=== PATIENT | female | born 1980 | race Caucasian/White ===

== ENCOUNTER 2016-11-11 05:26 | Emergency (ER) | payer OTHER ==
[~2016-11-11] VITALS: Ht 167.6 cm; Wt 81.7 kg
[~2016-11-11 05:26] MED LIST: ATIVAN0.5 MG PO; ATIVAN1 MG PO; DOXYCYCLINE 10100 MG PO; FLAGYL500 MG PO; HYDROCODONE-AP1 EAC6 PO; LEXAPRO20 MG PO; NOHOMEMEDICATIONS; NORCO 5-325 TA1 EACH PO; TORADOL 10 MG T10 MG PO; XANAX 0.5 MG0.5 M1 PO
[2016-11-11] MEDS ORDERED: CLONAZEPAM 1 MG1 M1 PO (05:32)
[2016-11-11] MEDS ORDERED: VENLAFAXIN75 MG/1 T2 PO (05:33)
[2016-11-11] MEDS ORDERED: OXYCODONE-ACET1 EACH PO (05:34)
[2016-11-11 06:10] LABS: URINE BILIRUBIN NEGATIVE (Negative); URINE BLOOD NEGATIVE (Negative); URINE COLOR YELLOW; URINE GLUCOSE-RANDOM* NEGATIVE (Negative); URINE KETONES NEGATIVE (Negative); URINE NITRITE NEGATIVE (Negative); URINE PROTEIN (DIPSTICK) NEGATIVE (Negative); URINE SPECIFIC GRAVITY >= 1.030 (1.003-1.035); URINE UROBILINOGEN 0.2 E.U./dl (0.2-1.0)
[2016-11-11 06:16] LABS: ABSOLUTE NEUTROPHILS 5.1 thou/uL (1.4-8.2); EOSINOPHILS 2.6 % (0.0-3.0); HEMATOCRIT 41.5 % (37.0-47.0); HEMOGLOBIN 14.2 gm/dL (12.0-15.0); LYMPHOCYTES 31.8 % (24.0-44.0); MCH 31.9 pg (26.0-34.0); MCHC 34.3 g/dL (28.0-37.0); MONOCYTES 6.7 % (1.0-8.0); PLATELET COUNT 230 thou/uL (150-400); POLYS 57.9 % (36.0-66.0); RBC 4.47 mil/uL (4.20-5.00); RDW 12.5 % (10.5-14.5); WBC 8.8 thou/uL (4.0-11.0)
[2016-11-11 06:26] LABS: ALBUMIN 3.5 g/dL (3.4-5.0); ALKALINE PHOSPHATASE 53 U/L (46-116); ANION GAP 11 mmol/L (7-16); BUN 12 mg/dL (7-18); CALCIUM 8.5 mg/dL (8.5-10.1); CHLORIDE 104 mmol/L (98-107); CO2 23 mmol/L (21-32); CREATININE 0.9 mg/dL (0.6-1.0); DIRECT BILIRUBIN < 0.1 mg/dL (<0.1-0.3); GLUCOSE 98 mg/dL (74-106); POTASSIUM 3.6 mmol/L (3.5-5.1); SGOT 18 U/L (15-37); SGPT 24 U/L (30-65); SODIUM 138 mmol/L (136-145); TOTAL BILIRUBIN 0.4 mg/dL (<0.1-1.0); TOTAL PROTEIN 6.7 g/dL (6.4-8.2)
[2016-11-11] MEDS ORDERED: ZOFRAN ODT4 MG PO (06:38)
[2016-11-11] MEDS ORDERED: PHENERGAN 25 MG25 M1 PO (06:38)
[2016-11-11 06:53] LABS: MANUAL DIFF NO
[2016-11-11 07:19] VITALS: BP 108/60
== END 2016-11-11 07:10 | disposition home or self-care (01) ==
LOC: ER 05:26
PROVIDERS: Emergency Medicine
DX: R10.30 Lower abdominal pain, unspecified (principal); M54.5 Low back pain; G89.29 Other chronic pain; Z98.890 Other specified postprocedural states; F32.9 Major depressive disorder, single episode, unspecified; F41.9 Anxiety disorder, unspecified; Z90.710 Acquired absence of both cervix and uterus; F17.210 Nicotine dependence, cigarettes, uncomplicated; F10.99 Alcohol use, unspecified with unspecified alcohol-induced disorder

== ENCOUNTER 2016-12-08 13:07 | Emergency (ER) | payer OTHER ==
[~2016-12-08] VITALS: Ht 167.6 cm; Wt 81.7 kg
[~2016-12-08 13:07] MED LIST changes: +CLONAZEPAM 1 MG1 M1 PO; +OXYCODONE-ACET1 EACH PO; +PHENERGAN 25 MG25 M1 PO; +VENLAFAXIN75 MG/1 T2 PO; +ZOFRAN ODT4 MG PO
[2016-12-08] MEDS ORDERED: HYDROXYZINE PAM50 MG PO (13:31)
[2016-12-08] MEDS ORDERED: ATIVAN0.5 MG PO (13:31)
[2016-12-08 13:33] LABS: URINE BILIRUBIN NEGATIVE (Negative); URINE BLOOD NEGATIVE (Negative); URINE COLOR YELLOW; URINE GLUCOSE-RANDOM* NEGATIVE (Negative); URINE KETONES NEGATIVE (Negative); URINE NITRITE NEGATIVE (Negative); URINE PROTEIN (DIPSTICK) TRACE (Negative); URINE SPECIFIC GRAVITY >= 1.030 (1.003-1.035); URINE UROBILINOGEN 0.2 E.U./dl (0.2-1.0)
[2016-12-08 14:24] LABS: ABSOLUTE NEUTROPHILS 4.4 thou/uL (1.4-8.2); BASOPHILS 0.9 % (0.0-2.0); EOSINOPHILS 1.4 % (0.0-3.0); HEMATOCRIT 42.2 % (37.0-47.0); HEMOGLOBIN 14.3 gm/dL (12.0-15.0); LYMPHOCYTES 24.8 % (24.0-44.0); MCH 31.2 pg (26.0-34.0); MCHC 33.9 g/dL (28.0-37.0); MONOCYTES 7.2 % (1.0-8.0); PLATELET COUNT 256 thou/uL (150-400); POLYS 65.7 % (36.0-66.0); RBC 4.58 mil/uL (4.20-5.00); WBC 6.8 thou/uL (4.0-11.0)
[2016-12-08 14:25] LABS: MANUAL DIFF NO
[2016-12-08 14:36] LABS: CALCIUM 8.7 mg/dL (8.5-10.1); CREATININE 0.8 mg/dL (0.6-1.0)
[2016-12-08 14:40] LABS: TOTAL BILIRUBIN 0.6 mg/dL (<0.1-1.0)
[2016-12-08] MEDS ORDERED: NAPROSYN500 MG PO (15:31)
[2016-12-08] MEDS ORDERED: NORFLEX100 MG PO (15:31)
[2016-12-08 15:45] VITALS: BP 110/66
== END 2016-12-08 15:45 | disposition home or self-care (01) ==
LOC: ER 13:07
PROVIDERS: Physician Assistant
DX: G89.29 Other chronic pain (principal); M54.5 Low back pain; N94.89 Other specified conditions associated with female genital organs and menstrual cycle; F41.9 Anxiety disorder, unspecified; F17.210 Nicotine dependence, cigarettes, uncomplicated; F32.9 Major depressive disorder, single episode, unspecified; Z90.710 Acquired absence of both cervix and uterus; Z90.89 Acquired absence of other organs

== ENCOUNTER 2016-12-22 20:18 | Inpatient (IN) | payer OTHER ==
[~2016-12-22] VITALS: Ht 167.6 cm; Wt 86.0 kg
--- NOTE | ~2016-12-22 | P ---
[facility] [place] [address] PROCEDURE REPORT Name: BING SR Room #: 441-P [facility] IN M.R.#: [id number] Admission: 12/24/16 Attend Phys: Jesusita Dalal Discharge: 12/26/16 Date of : 78 Report #: [id number] THIS REPORT FOR: //name// CC: Jonah Gustafson INPATIENT COLONOSCOPY REPORT BRIEF HISTORY: The patient is a 36-year-old woman with right lower quadrant abdominal pain and family history of inflammatory bowel disease. She has periods of diarrhea and constipation. PREOPERATIVE DIAGNOSES: Right lower quadrant abdominal pain, family history of inflammatory bowel disease and alternating diarrhea and constipation. POSTOPERATIVE DIAGNOSIS: Small internal hemorrhoids. MEDICATIONS: Deep sedation with propofol per anesthesia. SPECIMEN: None. ESTIMATED BLOOD LOSS: None. PROCEDURE: Colonoscopy to cecum and terminal ileum. FINDINGS: Prior to propofol sedation, procedure of colonoscopy discussed with the patient as well as potential risks and its complications. She indicates she understands and desires to proceed. DESCRIPTION OF PROCEDURE: With the patient in left lateral decubitus position, digital examination was completed which revealed no abnormalities. Subsequently, the [employer] video colonoscope was introduced in the rectum and advanced under direct vision to the cecum. As we advanced the scope deeper into the colon, we encountered pools of liquid and semi-liquid material. Unfortunately, we could not remove all this material due to retained particulate matter. In addition, as we advanced the scope, the prep became worse. Overall, the prep was fair in the distal colon and poor in the proximal colon. In particular, the cecum was not well seen because of retained liquid and amorphous material. However, we did reach the cecum. We identified the ileocecal valve and crossed the ileocecal valve. Indeed, there was also material in the distal terminal ileum. This could not be removed. However, as best we could see the mucosa, it was within normal limits. No bleeding lesions or ulcerations were seen. At that point, the scope was slowly withdrawn and careful circumferential views were obtained. As we withdrew the scope, again the prep was limited and poor in particular at the cecum. The prep was not adequate for colorectal [facility] [address] [place] [address] PROCEDURE REPORT Name: REMBERTOBINGJAY LOCKE Room #: 441-P DIS IN M.R.#: [id number] Admission: 12/24/16 Attend Phys: Jesusita Dalal Discharge: 12/26/16 Date of : 78 Report #: [id number] screening purposes. However, with regards to her severe abdominal pain, I did not see any obvious lesions such as ulcerations, evidence of inflammatory bowel disease such as Crohn's disease or mass lesions. However, with these retained liquidy stool areas, lesions could have been overlooked. As we withdrew the scope, the mucosa as well as could visualize was within normal limits. No mucosal abnormalities were seen. Scope was withdrawn in the rectum. Small hemorrhoids were seen. Scope was withdrawn. The patient tolerated the procedure well. DISPOSITION: The patient with abdominal pain, irregular bowel habits and family history of inflammatory bowel disease. No obvious lesions were seen on today's exam. She has had a fairly extensive workup to this point, and obvious etiology has not been identified. She has had multiple abdominopelvic surgeries, and adhesions may be the source of her pain. We will place her on dicyclomine mg every 6 hours as needed. <ELECTRONICALLY SIGNED> By: Mu Torres MD 12/31/16 0935 [id number] 0503 Mu Torres MD /nt
--- NOTE | ~2016-12-22 | P ---
[facility] [place] [address] PROCEDURE REPORT Name: REMBERTOBING CHUCKY Room #: 441-P [facility] IN M.R.#: [id number] Admission: 12/24/16 Attend Phys: Jesusita Dalal Discharge: 12/26/16 Date of : 78 Report #: [id number] THIS REPORT FOR: //name// CC: Jonah Gustafson BRIEF HISTORY: The patient is a 36-year-old woman with severe abdominal pain. PREOPERATIVE DIAGNOSIS: Abdominal pain. POSTOPERATIVE DIAGNOSIS: Moderate diffuse gastritis. MEDICATIONS: Deep sedation with propofol per anesthesia. SPECIMEN: Biopsies of gastritis. ESTIMATED BLOOD LOSS: 3 mL. PROCEDURE: EGD with biopsy. FINDINGS: Prior to propofol sedation, procedure of upper endoscopy discussed with the patient as well as potential risks and its complications. She indicates she understands and desires to proceed. DESCRIPTION OF PROCEDURE: With the patient in left lateral decubitus position, the [employer] video endoscope was inserted in the cervical esophagus under direct vision without difficulty. Examination of this organ through its entire length revealed normal esophageal mucosa down to the squamocolumnar junction. Squamocolumnar junction was inspected and noted to be within normal limits. No evidence of esophagitis, Garcia esophagus or hiatus hernia. Scope was advanced in the stomach, which was examined on end view as well as retroflexed views. There was a pattern of moderate gastritis in the antrum of the stomach. Multiple erosions were seen. Ulcers were not seen. Bleeding was not seen. There were no retained solids or liquids to suggest gastroparesis. Upon retroflexion, no mass lesions were seen. The pylorus, duodenal bulb, and postbulbar duodenal sweep were inspected and noted to be within normal limits. At that point, the scope was slowly withdrawn and careful circumferential views confirmed the above findings. The patient tolerated procedure well. DISPOSITION: I do not find a lesion to definitely explain her pain. I think a [facility] [address] [place] [address] PROCEDURE REPORT Name: BING SR Room #: 441-P [facility] IN .R.#: [id number] Admission: 12/24/16 Attend Phys: Jesusita Dalal Discharge: 12/26/16 Date of : 78 Report #: [id number] proton pump inhibitor would be reasonable at this point in time. We will proceed with colonoscopy for further evaluation. <ELECTRONICALLY SIGNED> By: Mu Torres MD 12/31/16 0935 1325 0356 Mu Torres MD /nt
--- NOTE | ~2016-12-22 | S ---
[facility] [place] [address] SURGICAL PATH RPT PROCEDURE Name: BING SRLE Room #: 441-P DIS IN M.R.#: [id number] Admission: 12/24/16 Date of : 78 Discharge: 12/26/16 Report #: [id number] Path Case #: [id number] PATHOLOGY REPORT COLLECTION DATE: 12/25/2016 RECEIVED DATE: 12/29/2016 SUBMITTING PHYS: Dr. Mu Torres OTHER PHYS: Dr. Jesusita Soto SPECIMEN(S) RECEIVED: A.Gastritis * * * * * * * * * * * * FINAL DIAGNOSIS: Gastric biopsy "gastritis": - Mild chronic reactive gastropathy. - There is no evidence of acute cryptitis, granulomas, adenomatous change or malignancy. - The immunoperoxidase stain for Helicobacter pylori is negative. PATHOLOGIST: Emery Leal M.D. REPORT ELECTRONICALLY SIGNED BY: Emery Leal M.D. DATE/TIME: 12/30/2016 12:43 * * * * * * * * * * * * GROSS PATHOLOGY: Received in formalin labeled "Bing Sr, gastritis," are four segments of blount soft tissue measuring 1.0 x 0.8 x 0.1 cm in aggregate dimensions and ranging from 0.3 to 0.5 cm in maximum dimension. The specimen is submitted entirely in cassette A1. (CAA; 12/29/2016) CLINICAL HISTORY: Pre-op diagnosis: Abdominal pain, diarrhea, vomiting Post-op diagnosis: Gastritis INITIAL CPT CODE(S): A; 65297, 87247 Professional services performed by [facility] at [facility] [address], [place] [address] Technical services performed by [facility] at [address] [place] [address]. [facility] [address] [place] [address] SURGICAL PATH RPT PROCEDURE Name: BING SR Room #: 441-P DIS IN Ken.R.#: [id number] Admission: 12/24/16 Date of : 78 Discharge: 12/26/16 Report #: [id number] Path Case #: [id number] [facility] [address] [place] [address] [address] PHONE: [phone] DIRECTOR: Shawn Jerome M.D. * * * END OF REPORT * * *
[~2016-12-22 20:18] MED LIST changes: +HYDROXYZINE PAM50 MG PO; +NAPROSYN500 MG PO; +NORFLEX100 MG PO
[2016-12-22 20:20] VITALS: BP 134/98
[2016-12-22] MEDS ORDERED: HYDROCODONE-AP1 EAC6 PO (20:28)
[2016-12-22 20:37] LABS: URINE BILIRUBIN NEGATIVE (Negative); URINE BLOOD NEGATIVE (Negative); URINE COLOR YELLOW; URINE GLUCOSE-RANDOM* NEGATIVE (Negative); URINE KETONES NEGATIVE (Negative); URINE NITRITE NEGATIVE (Negative); URINE PROTEIN (DIPSTICK) NEGATIVE (Negative); URINE SPECIFIC GRAVITY <= 1.005 (1.003-1.035); URINE UROBILINOGEN 0.2 E.U./dl (0.2-1.0)
[2016-12-22 21:05] LABS: ABSOLUTE NEUTROPHILS 7.3 thou/uL (1.4-8.2); BASOPHILS 0.7 % (0.0-2.0); EOSINOPHILS 2.3 % (0.0-3.0); HEMATOCRIT 39.2 % (37.0-47.0); HEMOGLOBIN 13.7 gm/dL (12.0-15.0); LYMPHOCYTES 24.3 % (24.0-44.0); MCH 31.9 pg (26.0-34.0); MCV 91.2 fL (80.0-100.0); MONOCYTES 7.6 % (1.0-8.0); PLATELET COUNT 263 thou/uL (150-400); POLYS 65.1 % (36.0-66.0); RDW 12.9 % (10.5-14.5); WBC 11.2 thou/uL (4.0-11.0)
[2016-12-22 21:06] LABS: MANUAL DIFF NO
[2016-12-22 21:09] LABS: CREATININE 0.9 mg/dL (0.6-1.0); POTASSIUM 4.2 mmol/L (3.5-5.1)
[2016-12-22 21:15] LABS: TOTAL BILIRUBIN 0.5 mg/dL (<0.1-1.0); TOTAL PROTEIN 7.4 g/dL (6.4-8.2)
[2016-12-22 22:10] LABS: AMP/METHAMP Negative (Negative); BARBITURATES POSITIVE (Negative); BENZODIAZEPINES Negative (Negative); COCAINE Negative (Negative); METHADONE Negative (Negative); OPIATES POSITIVE (Negative); PCP Negative (Negative); THC Negative (Negative)
[2016-12-23 00:25] VITALS: BP 117/82
[2016-12-23] MEDS ORDERED: ONDANSETRON HCL4 M2 PO (00:29)
[2016-12-23 04:29] LABS: HEMATOCRIT 40.6 % (37.0-47.0); HEMOGLOBIN 13.8 gm/dL (12.0-15.0); MCH 31.7 pg (26.0-34.0); MCHC 33.9 g/dL (28.0-37.0); MCV 93.5 fL (80.0-100.0); RBC 4.34 mil/uL (4.20-5.00); RDW 12.7 % (10.5-14.5); WBC 8.7 thou/uL (4.0-11.0)
[2016-12-23 04:40] LABS: CALCIUM 8.9 mg/dL (8.5-10.1); CREATININE 0.8 mg/dL (0.6-1.0); POTASSIUM 4.3 mmol/L (3.5-5.1)
[2016-12-23 08:00] VITALS: BP 104/63
[2016-12-23 16:55] VITALS: BP 96/63
[2016-12-23 19:13] VITALS: BP 96/59
[2016-12-24 05:34] VITALS: BP 109/68
[2016-12-24 06:06] LABS: ABSOLUTE NEUTROPHILS 4.9 thou/uL (1.4-8.2); BASOPHILS 0.6 % (0.0-2.0); EOSINOPHILS 2.2 % (0.0-3.0); HEMATOCRIT 35.1 % (37.0-47.0); HEMOGLOBIN 11.9 gm/dL (12.0-15.0); LYMPHOCYTES 27.2 % (24.0-44.0); MCH 31.9 pg (26.0-34.0); MCHC 33.8 g/dL (28.0-37.0); MCV 94.3 fL (80.0-100.0); MONOCYTES 7.9 % (1.0-8.0); PLATELET COUNT 185 thou/uL (150-400); POLYS 62.1 % (36.0-66.0); RBC 3.72 mil/uL (4.20-5.00)
[2016-12-24 06:14] LABS: ALBUMIN 3.1 g/dL (3.4-5.0); CALCIUM 7.8 mg/dL (8.5-10.1); CREATININE 0.8 mg/dL (0.6-1.0); MAGNESIUM 2.1 mg/dL (1.8-2.4); MANUAL DIFF NO; POTASSIUM 4.2 mmol/L (3.5-5.1); TOTAL BILIRUBIN 0.4 mg/dL (<0.1-1.0); TOTAL PROTEIN 5.7 g/dL (6.4-8.2)
[2016-12-24 10:13] VITALS: BP 115/77
[2016-12-24 16:00] VITALS: BP 124/67
[2016-12-24 19:45] VITALS: BP 109/65
[2016-12-25 00:30] VITALS: BP 109/76
[2016-12-25 03:55] VITALS: BP 103/70
[2016-12-25 08:52] VITALS: BP 116/71
[2016-12-25 16:58] VITALS: BP 108/70
[2016-12-25 20:00] VITALS: BP 109/71
[2016-12-26 03:30] VITALS: BP 105/79
[2016-12-26 07:45] VITALS: BP 109/63
[2016-12-26] MEDS ORDERED: PROTONIX 20 MG20 M1 PO (09:28)
[2016-12-26] MEDS ORDERED: COLACE100 MG PO (09:29)
[2016-12-26] MEDS ORDERED: TRAMADOL 50 MG50 MG PO (09:29)
[2016-12-26] MEDS ORDERED: CEFDINIR300 MG PO (09:29)
[2016-12-26 09:52] VITALS: BP 109/63
== END 2016-12-26 10:22 | disposition home or self-care (01) | DRG 760 ==
LOC: ER 20:18 → EROBS 23:15 → 4S 23:15
PROVIDERS: Emergency Medicine; Hospitalist; Nurse Practitioner Family; Physician Assistant
PROC: 0DJD8ZZ Inspection of Lower Intestinal Tract, Via Natural or Artificial Opening Endoscopic (ICD-10-PCS; principal; 2016-12-25)
PROC: 0DB68ZX Excision of Stomach, Via Natural or Artificial Opening Endoscopic, Diagnostic (ICD-10-PCS; principal; 2016-12-25)
DX: N80.9 Endometriosis, unspecified (principal); E44.1 Mild protein-calorie malnutrition; R10.11 Right upper quadrant pain; K29.70 Gastritis, unspecified, without bleeding; F32.9 Major depressive disorder, single episode, unspecified; F41.9 Anxiety disorder, unspecified; F17.210 Nicotine dependence, cigarettes, uncomplicated; D72.829 Elevated white blood cell count, unspecified; K64.8 Other hemorrhoids; Z90.710 Acquired absence of both cervix and uterus; Z90.49 Acquired absence of other specified parts of digestive tract; Z79.899 Other long term (current) drug therapy
CPT/HCPCS: 10195; 62110; 62900; 70005

== ENCOUNTER 2017-07-01 20:19 | Inpatient (IN) | payer OTHER ==
[~2017-07-01] VITALS: Ht 167.6 cm; Wt 81.6 kg
[2017-07-01 20:19] VITALS: BP 149/94
[~2017-07-01 20:19] MED LIST changes: +CEFDINIR300 MG PO; +COLACE100 MG PO; +ONDANSETRON HCL4 M2 PO; +OXYCODONE HCL 55 MG PO; +PROTONIX 20 MG20 M1 PO; +TRAMADOL 50 MG50 MG PO
[2017-07-01 21:15] LABS: ABSOLUTE NEUTROPHILS 7.2 thou/uL (1.4-8.2); BASOPHILS 0.8 % (0.0-2.0); EOSINOPHILS 2.2 % (0.0-3.0); HEMATOCRIT 42.8 % (37.0-47.0); HEMOGLOBIN 14.3 gm/dL (12.0-15.0); LYMPHOCYTES 22.5 % (24.0-44.0); MCH 31.6 pg (26.0-34.0); MCHC 33.4 g/dL (28.0-37.0); MCV 94.6 fL (80.0-100.0); MONOCYTES 6.5 % (1.0-8.0); PLATELET COUNT 287 thou/uL (150-400); RBC 4.52 mil/uL (4.20-5.00); RDW 13.2 % (10.5-14.5); WBC 10.5 thou/uL (4.0-11.0)
[2017-07-01 21:16] LABS: MANUAL DIFF NO
[2017-07-01 21:22] LABS: CREATININE 0.8 mg/dL (0.6-1.0); POTASSIUM 4.3 mmol/L (3.5-5.1)
[2017-07-01 21:28] LABS: ALBUMIN 3.8 g/dL (3.4-5.0); TOTAL BILIRUBIN 0.2 mg/dL (<0.1-1.0); TOTAL PROTEIN 6.9 g/dL (6.4-8.2)
[2017-07-01 22:52] LABS: URINE BILIRUBIN NEGATIVE (Negative); URINE BLOOD NEGATIVE (Negative); URINE COLOR YELLOW; URINE GLUCOSE-RANDOM* NEGATIVE (Negative); URINE KETONES NEGATIVE (Negative); URINE LEUKOCYTES-REFLEX NEGATIVE (Negative); URINE PROTEIN (DIPSTICK) NEGATIVE (Negative); URINE SPECIFIC GRAVITY <= 1.005 (1.003-1.035); URINE UROBILINOGEN 0.2 E.U./dl (0.2-1.0)
[2017-07-02 01:16] VITALS: BP 133/87
[2017-07-02 02:04] VITALS: BP 113/78
[2017-07-02 08:00] VITALS: BP 120/90
[2017-07-02 11:53] VITALS: BP 114/73
[2017-07-02 16:01] VITALS: BP 113/72
[2017-07-02 20:30] VITALS: BP 116/67
[2017-07-03 03:35] LABS: HEMATOCRIT 39.8 % (37.0-47.0); HEMOGLOBIN 13.3 gm/dL (12.0-15.0); MCH 31.3 pg (26.0-34.0); MCHC 33.3 g/dL (28.0-37.0); RBC 4.24 mil/uL (4.20-5.00); RDW 12.8 % (10.5-14.5)
[2017-07-03 03:38] VITALS: BP 125/51
[2017-07-03 03:41] LABS: CALCIUM 8.9 mg/dL (8.5-10.1); CREATININE 0.8 mg/dL (0.6-1.0)
[2017-07-03 07:54] VITALS: BP 108/78
[2017-07-03] MEDS ORDERED: OXYCODONE HCL 55 MG PO (08:36)
[2017-07-03 08:55] VITALS: BP 108/78
== END 2017-07-03 09:53 | disposition home or self-care (01) | DRG 392 ==
LOC: ER 20:19 → EROBS 07-02 00:49 → 4E 07-02 01:16
PROVIDERS: Emergency Medicine; Hospitalist
DX: R10.31 Right lower quadrant pain (principal); F41.9 Anxiety disorder, unspecified; F32.9 Major depressive disorder, single episode, unspecified; F17.210 Nicotine dependence, cigarettes, uncomplicated; Z90.711 Acquired absence of uterus with remaining cervical stump; Z90.49 Acquired absence of other specified parts of digestive tract; Z83.3 Family history of diabetes mellitus; Z28.21 Immunization not carried out because of patient refusal
CPT/HCPCS: 10084

== ENCOUNTER 2017-08-13 15:47 | Emergency (ER) | payer OTHER ==
[~2017-08-13] VITALS: Ht 167.6 cm; Wt 81.7 kg
[2017-08-13 18:20] LABS: ABSOLUTE NEUTROPHILS 7.5 thou/uL (1.4-8.2); BASOPHILS 0.9 % (0.0-2.0); EOSINOPHILS 1.4 % (0.0-3.0); HEMATOCRIT 39.3 % (37.0-47.0); HEMOGLOBIN 13.7 gm/dL (12.0-15.0); LYMPHOCYTES 19.8 % (24.0-44.0); MCH 32.2 pg (26.0-34.0); MCHC 34.9 g/dL (28.0-37.0); MCV 92.5 fL (80.0-100.0); MONOCYTES 8.3 % (1.0-8.0); PLATELET COUNT 235 thou/uL (150-400); POLYS 69.6 % (36.0-66.0); RBC 4.25 mil/uL (4.20-5.00); RDW 12.7 % (10.5-14.5); WBC 10.8 thou/uL (4.0-11.0)
[2017-08-13 18:25] LABS: CALCIUM 8.2 mg/dL (8.5-10.1); CREATININE 0.8 mg/dL (0.6-1.0); POTASSIUM 3.7 mmol/L (3.5-5.1)
[2017-08-13] MEDS ORDERED: CLEOCIN HCL150 MG PO (20:06)
[2017-08-13] MEDS ORDERED: CIPROFLOXACIN500 M1 PO (20:06)
[2017-08-13] MEDS ORDERED: TRAMADOL 50 MG50 MG PO (20:43)
[2017-08-13 20:58] VITALS: BP 118/66
[2018-03-24] MEDS ORDERED: LUPRON DEPOT IM (15:20)
[2018-03-24] MEDS ORDERED: PERCOCET PO (18:18)
[2018-03-24] MEDS ORDERED: ZOFRAN ODT4 MG PO (18:18)
[2018-03-24] MEDS ORDERED: METROGEL-VAGINA70 GM VAG (18:18)
== END 2017-08-13 21:00 | disposition home or self-care (01) ==
LOC: ER 15:47
PROVIDERS: Emergency Medicine
DX: N76.0 Acute vaginitis (principal); M79.1 Myalgia; J11.1 Influenza due to unidentified influenza virus with other respiratory manifestations; N76.4 Abscess of vulva; F32.9 Major depressive disorder, single episode, unspecified; F41.9 Anxiety disorder, unspecified; N80.9 Endometriosis, unspecified; F17.210 Nicotine dependence, cigarettes, uncomplicated; Z90.49 Acquired absence of other specified parts of digestive tract; Z90.89 Acquired absence of other organs; Z90.711 Acquired absence of uterus with remaining cervical stump

== ENCOUNTER 2019-04-18 21:26 | Emergency (ER) | payer OTHER ==
[~2019-04-18] VITALS: Ht 167.6 cm; Wt 88.5 kg
[~2019-04-18 21:26] MED LIST changes: +CIPROFLOXACIN500 M1 PO; +CLEOCIN HCL150 MG PO; +LUPRON DEPOT IM; +METROGEL-VAGINA70 GM VAG; +PERCOCET PO
[2019-04-18 21:45] LABS: URINE BILIRUBIN NEGATIVE (Negative); URINE BLOOD NEGATIVE (Negative); URINE CLARITY CLEAR; URINE COLOR YELLOW; URINE GLUCOSE-RANDOM* NEGATIVE (Negative); URINE KETONES NEGATIVE (Negative); URINE LEUKOCYTES-REFLEX TRACE (Negative); URINE NITRITE-REFLEX NEGATIVE (Negative); URINE PROTEIN (DIPSTICK) NEGATIVE (Negative); URINE SPECIFIC GRAVITY 1.025 (1.005-1.035); URINE UROBILINOGEN 0.2 E.U./dl (0.2-1.0)
[2019-04-18 23:03] LABS: ABSOLUTE NEUTROPHILS 5.1 thou/uL (1.4-8.2); BASOPHILS 1.3 % (0.0-2.0); EOSINOPHILS 1.6 % (0.0-3.0); HEMATOCRIT 40.9 % (37.0-47.0); HEMOGLOBIN 13.9 gm/dL (12.0-15.0); MCH 31.9 pg (26.0-34.0); MCHC 33.9 g/dL (28.0-37.0); MCV 93.9 fL (80.0-100.0); MONOCYTES 7.2 % (1.0-8.0); PLATELET COUNT 284 thou/uL (150-400); POLYS 57.9 % (36.0-66.0); RBC 4.35 mil/uL (4.20-5.00); RDW 13.1 % (10.5-14.5); WBC 8.7 thou/uL (4.0-11.0)
[2019-04-18 23:18] LABS: CREATININE 0.8 mg/dL (0.6-1.0); POTASSIUM 3.7 mmol/L (3.5-5.1)
[2019-04-18 23:24] LABS: ALBUMIN 3.9 g/dL (3.4-5.0); TOTAL BILIRUBIN 0.2 mg/dL (<0.1-1.0); TOTAL PROTEIN 7.2 g/dL (6.4-8.2)
[2019-04-19 00:15] VITALS: BP 129/82
== END 2019-04-19 00:15 | disposition home or self-care (01) ==
LOC: ER 21:26
PROVIDERS: Emergency Medicine
DX: R10.30 Lower abdominal pain, unspecified (principal); F41.9 Anxiety disorder, unspecified; F32.9 Major depressive disorder, single episode, unspecified; N80.9 Endometriosis, unspecified; F17.210 Nicotine dependence, cigarettes, uncomplicated; Z90.711 Acquired absence of uterus with remaining cervical stump; Z90.49 Acquired absence of other specified parts of digestive tract; Z90.721 Acquired absence of ovaries, unilateral

== ENCOUNTER 2019-04-30 00:59 | Emergency (ER) | payer OTHER ==
[~2019-04-30] VITALS: Ht 167.6 cm; Wt 86.2 kg
[2019-04-30 01:23] LABS: URINE BILIRUBIN NEGATIVE (Negative); URINE BLOOD NEGATIVE (Negative); URINE CLARITY CLEAR; URINE COLOR YELLOW; URINE GLUCOSE-RANDOM* NEGATIVE (Negative); URINE KETONES NEGATIVE (Negative); URINE LEUKOCYTES-REFLEX NEGATIVE (Negative); URINE NITRITE-REFLEX NEGATIVE (Negative); URINE PROTEIN (DIPSTICK) NEGATIVE (Negative); URINE SPECIFIC GRAVITY 1.025 (1.005-1.035); URINE UROBILINOGEN 0.2 E.U./dl (0.2-1.0)
[2019-04-30 01:59] LABS: ABSOLUTE NEUTROPHILS 5.2 thou/uL (1.4-8.2); BASOPHILS 1.2 % (0.0-2.0); EOSINOPHILS 1.6 % (0.0-3.0); HEMATOCRIT 38.9 % (37.0-47.0); LYMPHOCYTES 32.6 % (24.0-44.0); MCH 31.5 pg (26.0-34.0); MCHC 33.4 g/dL (28.0-37.0); MCV 94.2 fL (80.0-100.0); MONOCYTES 6.8 % (1.0-8.0); PLATELET COUNT 201 thou/uL (150-400); POLYS 57.8 % (36.0-66.0); RBC 4.13 mil/uL (4.20-5.00); RDW 12.9 % (10.5-14.5); WBC 8.9 thou/uL (4.0-11.0)
[2019-04-30 02:03] LABS: CALCIUM 9.2 mg/dL (8.5-10.1); CREATININE 0.8 mg/dL (0.6-1.0); POTASSIUM 4.3 mmol/L (3.5-5.1)
[2019-04-30 02:10] LABS: ALBUMIN 3.6 g/dL (3.4-5.0); TOTAL BILIRUBIN 0.2 mg/dL (<0.1-1.0); TOTAL PROTEIN 6.8 g/dL (6.4-8.2)
[2019-04-30] MEDS ORDERED: NAPROSYN500 MG PO (03:02)
[2019-04-30 03:04] VITALS: BP 100/80
[2019-04-30] MEDS ORDERED: NORCO 5-325 TA1 EAC1 PO (03:06)
== END 2019-04-30 03:10 | disposition home or self-care (01) ==
LOC: ER 00:59
PROVIDERS: Emergency Medicine
DX: R10.30 Lower abdominal pain, unspecified (principal); F17.210 Nicotine dependence, cigarettes, uncomplicated; F41.9 Anxiety disorder, unspecified; F32.9 Major depressive disorder, single episode, unspecified; N80.9 Endometriosis, unspecified; Z90.711 Acquired absence of uterus with remaining cervical stump; Z90.49 Acquired absence of other specified parts of digestive tract; Z90.89 Acquired absence of other organs; Z90.721 Acquired absence of ovaries, unilateral

== ENCOUNTER 2019-05-10 02:11 | Emergency (ER) | payer OTHER ==
[~2019-05-10] VITALS: Ht 167.6 cm; Wt 86.2 kg
[~2019-05-10 02:11] MED LIST changes: +NORCO 5-325 TA1 EAC1 PO
[2019-05-10 03:10] LABS: CALCIUM 8.8 mg/dL (8.5-10.1); CREATININE 0.9 mg/dL (0.6-1.0); POTASSIUM 3.7 mmol/L (3.5-5.1)
[2019-05-10 03:16] LABS: ALBUMIN 4.1 g/dL (3.4-5.0); TOTAL BILIRUBIN 0.2 mg/dL (<0.1-1.0); TOTAL PROTEIN 7.3 g/dL (6.4-8.2)
[2019-05-10 03:23] LABS: URINE BILIRUBIN NEGATIVE (Negative); URINE BLOOD NEGATIVE (Negative); URINE CLARITY CLEAR; URINE COLOR YELLOW; URINE GLUCOSE-RANDOM* NEGATIVE (Negative); URINE KETONES NEGATIVE (Negative); URINE LEUKOCYTES-REFLEX NEGATIVE (Negative); URINE NITRITE-REFLEX NEGATIVE (Negative); URINE PROTEIN (DIPSTICK) NEGATIVE (Negative); URINE SPECIFIC GRAVITY >= 1.030 (1.005-1.035); URINE UROBILINOGEN 0.2 E.U./dl (0.2-1.0)
[2019-05-10 03:27] LABS: ABSOLUTE NEUTROPHILS 5.5 thou/uL (1.4-8.2); BASOPHILS 0.9 % (0.0-2.0); EOSINOPHILS 1.6 % (0.0-3.0); HEMATOCRIT 39.3 % (37.0-47.0); HEMOGLOBIN 13.3 gm/dL (12.0-15.0); LYMPHOCYTES 31.7 % (24.0-44.0); MCH 31.7 pg (26.0-34.0); MCHC 33.9 g/dL (28.0-37.0); MCV 93.5 fL (80.0-100.0); PLATELET COUNT 253 thou/uL (150-400); POLYS 58.8 % (36.0-66.0); RBC 4.21 mil/uL (4.20-5.00); WBC 9.4 thou/uL (4.0-11.0)
[2019-05-10 04:05] VITALS: BP 106/72
[2019-05-10] MEDS ORDERED: ULTRAM 50MG TAB50 MG PO (04:43)
== END 2019-05-10 04:54 | disposition home or self-care (01) ==
LOC: ER 02:11
PROVIDERS: Emergency Medicine
DX: R10.13 Epigastric pain (principal); R10.11 Right upper quadrant pain; R10.31 Right lower quadrant pain; N80.9 Endometriosis, unspecified; F41.9 Anxiety disorder, unspecified; F32.9 Major depressive disorder, single episode, unspecified; F17.210 Nicotine dependence, cigarettes, uncomplicated; Z90.49 Acquired absence of other specified parts of digestive tract; Z90.711 Acquired absence of uterus with remaining cervical stump; Z90.721 Acquired absence of ovaries, unilateral

== ENCOUNTER 2019-05-29 21:25 | Emergency (ER) | payer OTHER ==
[~2019-05-29] VITALS: Ht 167.6 cm; Wt 89.8 kg
[~2019-05-29 21:25] MED LIST changes: +ULTRAM 50MG TAB50 MG PO
[2019-05-29 22:18] LABS: URINE BILIRUBIN NEGATIVE (Negative); URINE BLOOD NEGATIVE (Negative); URINE CLARITY CLEAR; URINE COLOR YELLOW; URINE GLUCOSE-RANDOM* NEGATIVE (Negative); URINE KETONES NEGATIVE (Negative); URINE LEUKOCYTES-REFLEX NEGATIVE (Negative); URINE NITRITE-REFLEX NEGATIVE (Negative); URINE PROTEIN (DIPSTICK) NEGATIVE (Negative); URINE SPECIFIC GRAVITY >= 1.030 (1.005-1.035); URINE UROBILINOGEN 0.2 E.U./dl (0.2-1.0)
[2019-05-29 22:22] LABS: ABSOLUTE NEUTROPHILS 5.6 thou/uL (1.4-8.2); BASOPHILS 0.8 % (0.0-2.0); EOSINOPHILS 1.6 % (0.0-3.0); HEMATOCRIT 40.1 % (37.0-47.0); HEMOGLOBIN 13.5 gm/dL (12.0-15.0); LYMPHOCYTES 24.7 % (24.0-44.0); MCH 31.9 pg (26.0-34.0); MCHC 33.7 g/dL (28.0-37.0); MCV 94.6 fL (80.0-100.0); MONOCYTES 8.4 % (1.0-8.0); PLATELET COUNT 263 thou/uL (150-400); POLYS 64.5 % (36.0-66.0); RBC 4.24 mil/uL (4.20-5.00); RDW 13.3 % (10.5-14.5); WBC 8.7 thou/uL (4.0-11.0)
[2019-05-29 22:28] LABS: ANION GAP 9 mmol/L (7-16); BUN 10 mg/dL (7-18); CALCIUM 9.2 mg/dL (8.5-10.1); CHLORIDE 102 mmol/L (98-107); CO2 27 mmol/L (21-32); CREATININE 0.8 mg/dL (0.6-1.0); GLUCOSE 108 mg/dL (74-106); POTASSIUM 3.8 mmol/L (3.5-5.1); SODIUM 138 mmol/L (136-145)
[2019-05-29 22:34] VITALS: BP 113/78
[2019-05-29 22:34] LABS: ALBUMIN 3.7 g/dL (3.4-5.0); DIRECT BILIRUBIN < 0.1 mg/dL (<0.1-0.3); SGOT 18 U/L (15-37); SGPT 14 U/L (30-65); TOTAL BILIRUBIN 0.2 mg/dL (<0.1-1.0)
== END 2019-05-29 22:34 | disposition left against medical advice (07) ==
LOC: ER 21:25
PROVIDERS: Emergency Medicine
DX: R10.31 Right lower quadrant pain (principal); R10.84 Generalized abdominal pain; F11.20 Opioid dependence, uncomplicated; R42 Dizziness and giddiness; F32.9 Major depressive disorder, single episode, unspecified; N80.9 Endometriosis, unspecified; Z90.49 Acquired absence of other specified parts of digestive tract; Z90.89 Acquired absence of other organs; F17.210 Nicotine dependence, cigarettes, uncomplicated

== ENCOUNTER 2019-10-31 15:18 | Emergency (ER) | payer OTHER ==
[~2019-10-31] VITALS: Ht 167.6 cm; Wt 81.7 kg
[2019-10-31 15:37] LABS: URINE BILIRUBIN NEGATIVE (Negative); URINE BLOOD NEGATIVE (Negative); URINE CLARITY CLOUDY; URINE COLOR YELLOW; URINE GLUCOSE-RANDOM* NEGATIVE (Negative); URINE KETONES NEGATIVE (Negative); URINE LEUKOCYTES-REFLEX NEGATIVE (Negative); URINE NITRITE-REFLEX NEGATIVE (Negative); URINE PROTEIN (DIPSTICK) NEGATIVE (Negative); URINE SPECIFIC GRAVITY >= 1.030 (1.005-1.035); URINE UROBILINOGEN 0.2 E.U./dl (0.2-1.0)
[2019-10-31 16:34] LABS: ABSOLUTE NEUTROPHILS 2.8 thou/uL (1.4-8.2); BASOPHILS 1.1 % (0.0-2.0); EOSINOPHILS 0.9 % (0.0-3.0); HEMATOCRIT 41.9 % (37.0-47.0); HEMOGLOBIN 14.2 gm/dL (12.0-15.0); LYMPHOCYTES 34.9 % (24.0-44.0); MCH 31.8 pg (26.0-34.0); MCHC 33.9 g/dL (28.0-37.0); MCV 93.7 fL (80.0-100.0); MONOCYTES 8.8 % (1.0-8.0); PLATELET COUNT 276 thou/uL (150-400); POLYS 54.3 % (36.0-66.0); RBC 4.48 mil/uL (4.20-5.00); RDW 12.9 % (10.5-14.5); WBC 5.2 thou/uL (4.0-11.0)
[2019-10-31 16:56] LABS: CALCIUM 9.7 mg/dL (8.5-10.1); POTASSIUM 3.8 mmol/L (3.5-5.1)
[2019-10-31 17:01] LABS: ALBUMIN 4.3 g/dL (3.4-5.0); TOTAL BILIRUBIN 0.4 mg/dL (<0.1-1.0); TOTAL PROTEIN 7.5 g/dL (6.4-8.2)
[2019-10-31] MEDS ORDERED: ATIVAN0.5 M1 PO (18:44)
[2019-10-31] MEDS ORDERED: NORCO 5-325 TA1 EAC1 PO (18:44)
[2019-10-31 18:57] VITALS: BP 114/86
[2019-11-02 11:29] LABS: HSV PCR SOURCE BLISTER
[2019-11-03 08:08] LABS: HSV 1 DNA Negative (Negative); HSV 2 DNA Negative (Negative)
== END 2019-10-31 19:00 | disposition home or self-care (01) ==
LOC: ER 15:18
PROVIDERS: Physician Assistant
DX: N80.9 Endometriosis, unspecified (principal); R42 Dizziness and giddiness; F41.9 Anxiety disorder, unspecified; F32.9 Major depressive disorder, single episode, unspecified; F17.210 Nicotine dependence, cigarettes, uncomplicated; Z90.49 Acquired absence of other specified parts of digestive tract; Z90.711 Acquired absence of uterus with remaining cervical stump; Z90.721 Acquired absence of ovaries, unilateral

== ENCOUNTER 2019-11-03 16:23 | Emergency (ER) | payer OTHER ==
[~2019-11-03] VITALS: Ht 167.6 cm; Wt 81.7 kg
[~2019-11-03 16:23] MED LIST changes: +ATIVAN0.5 M1 PO
[2019-11-03 16:58] LABS: URINE BILIRUBIN NEGATIVE (Negative); URINE BLOOD NEGATIVE (Negative); URINE CLARITY CLOUDY; URINE COLOR YELLOW; URINE GLUCOSE-RANDOM* NEGATIVE (Negative); URINE KETONES NEGATIVE (Negative); URINE LEUKOCYTES-REFLEX NEGATIVE (Negative); URINE NITRITE-REFLEX NEGATIVE (Negative); URINE PROTEIN (DIPSTICK) NEGATIVE (Negative); URINE SPECIFIC GRAVITY >= 1.030 (1.005-1.035); URINE UROBILINOGEN 0.2 E.U./dl (0.2-1.0)
[2019-11-03 17:11] LABS: ABSOLUTE NEUTROPHILS 3.6 thou/uL (1.4-8.2); BASOPHILS 1.1 % (0.0-2.0); EOSINOPHILS 0.9 % (0.0-3.0); HEMATOCRIT 42.6 % (37.0-47.0); HEMOGLOBIN 14.3 gm/dL (12.0-15.0); LYMPHOCYTES 32.5 % (24.0-44.0); MCH 31.7 pg (26.0-34.0); MCHC 33.6 g/dL (28.0-37.0); MCV 94.1 fL (80.0-100.0); MONOCYTES 7.2 % (1.0-8.0); PLATELET COUNT 282 thou/uL (150-400); POLYS 58.3 % (36.0-66.0); RBC 4.52 mil/uL (4.20-5.00); RDW 12.9 % (10.5-14.5); WBC 6.2 thou/uL (4.0-11.0)
[2019-11-03 17:19] LABS: CALCIUM 9.2 mg/dL (8.5-10.1); CREATININE 0.9 mg/dL (0.6-1.0); POTASSIUM 4.2 mmol/L (3.5-5.1)
[2019-11-03 17:25] LABS: ALBUMIN 4.2 g/dL (3.4-5.0); TOTAL BILIRUBIN 0.5 mg/dL (<0.1-1.0)
[2019-11-03] MEDS ORDERED: ROXICODONE5 M2 PO (18:14)
[2019-11-03 18:27] VITALS: BP 133/71
== END 2019-11-03 18:28 | disposition home or self-care (01) ==
LOC: ER 16:23
PROVIDERS: Emergency Medicine
DX: R10.31 Right lower quadrant pain (principal); N80.9 Endometriosis, unspecified; F17.210 Nicotine dependence, cigarettes, uncomplicated; Z90.49 Acquired absence of other specified parts of digestive tract; Z90.89 Acquired absence of other organs; Z90.711 Acquired absence of uterus with remaining cervical stump

== ENCOUNTER 2019-11-26 19:45 | Emergency (ER) | payer OTHER ==
[~2019-11-26] VITALS: Ht 167.6 cm; Wt 81.7 kg
[~2019-11-26 19:45] MED LIST changes: +ROXICODONE5 M2 PO
[2019-11-26 20:29] LABS: ABSOLUTE NEUTROPHILS 4.6 thou/uL (1.4-8.2); BASOPHILS 0.9 % (0.0-2.0); EOSINOPHILS 0.7 % (0.0-3.0); HEMATOCRIT 38.8 % (37.0-47.0); HEMOGLOBIN 13.3 gm/dL (12.0-15.0); LYMPHOCYTES 26.5 % (24.0-44.0); MCH 31.8 pg (26.0-34.0); MCHC 34.2 g/dL (28.0-37.0); MCV 92.8 fL (80.0-100.0); MONOCYTES 6.7 % (1.0-8.0); PLATELET COUNT 264 thou/uL (150-400); POLYS 65.2 % (36.0-66.0); RBC 4.19 mil/uL (4.20-5.00); RDW 12.9 % (10.5-14.5); WBC 7.1 thou/uL (4.0-11.0)
[2019-11-26 20:40] LABS: CALCIUM 8.5 mg/dL (8.5-10.1); CREATININE 0.9 mg/dL (0.6-1.0); POTASSIUM 3.7 mmol/L (3.5-5.1)
[2019-11-26 20:46] LABS: ALBUMIN 3.9 g/dL (3.4-5.0); TOTAL BILIRUBIN 0.3 mg/dL (<0.1-1.0); TOTAL PROTEIN 6.9 g/dL (6.4-8.2)
[2019-11-26] MEDS ORDERED: PERCOCET 5-3251 EACH PO (22:47)
[2019-11-26 23:09] VITALS: BP 143/107
== END 2019-11-26 23:11 | disposition home or self-care (01) ==
LOC: ER 19:45
PROVIDERS: Emergency Medicine
DX: R10.31 Right lower quadrant pain (principal); R10.32 Left lower quadrant pain; R10.11 Right upper quadrant pain; R42 Dizziness and giddiness; F17.210 Nicotine dependence, cigarettes, uncomplicated; Z90.710 Acquired absence of both cervix and uterus; Z79.899 Other long term (current) drug therapy

== ENCOUNTER 2019-11-28 13:59 | Emergency (ER) | payer OTHER ==
[~2019-11-28] VITALS: Ht 167.6 cm; Wt 95.3 kg
[~2019-11-28 13:59] MED LIST changes: +PERCOCET 5-3251 EACH PO
[2019-11-28 15:20] LABS: URINE BILIRUBIN NEGATIVE (Negative); URINE BLOOD NEGATIVE (Negative); URINE CLARITY CLEAR; URINE COLOR YELLOW; URINE GLUCOSE-RANDOM* NEGATIVE (Negative); URINE KETONES NEGATIVE (Negative); URINE LEUKOCYTES-REFLEX NEGATIVE (Negative); URINE NITRITE-REFLEX NEGATIVE (Negative); URINE PROTEIN (DIPSTICK) NEGATIVE (Negative); URINE UROBILINOGEN 0.2 E.U./dl (0.2-1.0)
[2019-11-28 15:41] VITALS: BP 112/76
== END 2019-11-28 15:41 | disposition home or self-care (01) ==
LOC: ER 13:59
PROVIDERS: Emergency Medicine
DX: R10.9 Unspecified abdominal pain (principal); R11.0 Nausea; N89.8 Other specified noninflammatory disorders of vagina; F17.210 Nicotine dependence, cigarettes, uncomplicated; Z90.49 Acquired absence of other specified parts of digestive tract; Z90.89 Acquired absence of other organs; Z90.711 Acquired absence of uterus with remaining cervical stump; Z79.899 Other long term (current) drug therapy

== ENCOUNTER 2019-12-02 15:22 | Emergency (ER) | payer OTHER ==
[~2019-12-02] VITALS: Ht 167.6 cm; Wt 81.7 kg
[2019-12-02 15:48] LABS: URINE BILIRUBIN NEGATIVE (Negative); URINE BLOOD NEGATIVE (Negative); URINE CLARITY SL CLOUDY; URINE COLOR YELLOW; URINE GLUCOSE-RANDOM* NEGATIVE (Negative); URINE KETONES NEGATIVE (Negative); URINE LEUKOCYTES-REFLEX NEGATIVE (Negative); URINE NITRITE-REFLEX NEGATIVE (Negative); URINE PROTEIN (DIPSTICK) NEGATIVE (Negative); URINE SPECIFIC GRAVITY >= 1.030 (1.005-1.035); URINE UROBILINOGEN 0.2 E.U./dl (0.2-1.0)
[2019-12-02 16:20] LABS: HEMOGLOBIN 13.3 gm/dL (12.0-15.0); MCH 31.6 pg (26.0-34.0); MCHC 34.1 g/dL (28.0-37.0); MCV 92.7 fL (80.0-100.0); RBC 4.2 mil/uL (4.20-5.00); WBC 5.2 thou/uL (4.0-11.0)
[2019-12-02 16:37] LABS: ALBUMIN 3.8 g/dL (3.4-5.0); CALCIUM 7.9 mg/dL (8.5-10.1); POTASSIUM 3.5 mmol/L (3.5-5.1); TOTAL BILIRUBIN 0.3 mg/dL (<0.1-1.0); TOTAL PROTEIN 6.8 g/dL (6.4-8.2)
[2019-12-02 16:59] VITALS: BP 142/96
== END 2019-12-02 16:59 | disposition home or self-care (01) ==
LOC: ER 15:22
PROVIDERS: Physician Assistant
DX: N80.9 Endometriosis, unspecified (principal); F17.210 Nicotine dependence, cigarettes, uncomplicated; Z90.49 Acquired absence of other specified parts of digestive tract; Z90.89 Acquired absence of other organs; Z90.711 Acquired absence of uterus with remaining cervical stump

== ENCOUNTER 2019-12-31 19:38 | Emergency (ER) | payer BC ==
[~2019-12-31] VITALS: Ht 167.6 cm; Wt 85.3 kg
[2019-12-31 20:14] LABS: URINE BILIRUBIN NEGATIVE (Negative); URINE BLOOD NEGATIVE (Negative); URINE CLARITY HAZY; URINE COLOR YELLOW; URINE GLUCOSE-RANDOM* NEGATIVE (Negative); URINE KETONES NEGATIVE (Negative); URINE LEUKOCYTES-REFLEX NEGATIVE (Negative); URINE NITRITE-REFLEX NEGATIVE (Negative); URINE PROTEIN (DIPSTICK) NEGATIVE (Negative); URINE SPECIFIC GRAVITY 1.015 (1.005-1.035)
[2019-12-31 20:15] LABS: ABSOLUTE NEUTROPHILS 5.5 thou/uL (1.4-8.2); BASOPHILS 0.8 % (0.0-2.0); EOSINOPHILS 0.9 % (0.0-3.0); HEMATOCRIT 41.6 % (37.0-47.0); HEMOGLOBIN 14.2 gm/dL (12.0-15.0); LYMPHOCYTES 27.6 % (24.0-44.0); MCH 32.1 pg (26.0-34.0); MCHC 34.2 g/dL (28.0-37.0); MCV 93.8 fL (80.0-100.0); MONOCYTES 7.2 % (1.0-8.0); PLATELET COUNT 283 thou/uL (150-400); POLYS 63.5 % (36.0-66.0); RBC 4.43 mil/uL (4.20-5.00); RDW 13.4 % (10.5-14.5); WBC 8.7 thou/uL (4.0-11.0)
[2019-12-31 20:23] LABS: ANION GAP 10 mmol/L (7-16); BUN 9 mg/dL (7-18); CALCIUM 8.4 mg/dL (8.5-10.1); CHLORIDE 102 mmol/L (98-107); CO2 24 mmol/L (21-32); GLUCOSE 137 mg/dL (74-106); SODIUM 136 mmol/L (136-145)
[2019-12-31 20:29] LABS: ALBUMIN 4.1 g/dL (3.4-5.0); LIPASE 99 U/L (73-393); SGOT 26 U/L (15-37); SGPT 20 U/L (30-65); TOTAL BILIRUBIN 0.4 mg/dL (0.2-1.0); TOTAL PROTEIN 7.7 g/dL (6.4-8.2)
[2019-12-31 20:30] LABS: DIRECT BILIRUBIN < 0.1 mg/dL (<0.1-0.2)
[2019-12-31] MEDS ORDERED: TRAMADOL 50 MG50 MG PO (22:49)
[2019-12-31] MEDS ORDERED: NAPROSYN500 MG PO (22:49)
[2019-12-31 23:13] VITALS: BP 138/91
== END 2019-12-31 23:14 | disposition home or self-care (01) ==
LOC: ER 19:38
PROVIDERS: Emergency Medicine
DX: N80.8 Other endometriosis (principal); R10.31 Right lower quadrant pain; F17.210 Nicotine dependence, cigarettes, uncomplicated; Z79.899 Other long term (current) drug therapy; Z90.49 Acquired absence of other specified parts of digestive tract

== ENCOUNTER 2020-01-12 15:03 | Emergency (ER) | payer BC ==
[~2020-01-12] VITALS: Ht 167.6 cm; Wt 85.3 kg
[2020-01-12 15:40] LABS: URINE BILIRUBIN NEGATIVE (Negative); URINE BLOOD NEGATIVE (Negative); URINE CLARITY CLEAR; URINE COLOR YELLOW; URINE GLUCOSE-RANDOM* NEGATIVE (Negative); URINE KETONES NEGATIVE (Negative); URINE LEUKOCYTES-REFLEX NEGATIVE (Negative); URINE NITRITE-REFLEX NEGATIVE (Negative); URINE PROTEIN (DIPSTICK) NEGATIVE (Negative); URINE UROBILINOGEN 0.2 E.U./dl (0.2-1.0)
[2020-01-12] MEDS ORDERED: ZOFRAN 4 MG ORAL4 MG PO (15:48)
[2020-01-12 16:00] LABS: BASOPHILS 1.3 % (0.0-2.0); EOSINOPHILS 1.1 % (0.0-3.0); HEMATOCRIT 41.2 % (37.0-47.0); HEMOGLOBIN 13.8 gm/dL (12.0-15.0); LYMPHOCYTES 26.7 % (24.0-44.0); MCH 31.9 pg (26.0-34.0); MCHC 33.6 g/dL (28.0-37.0); PLATELET COUNT 270 thou/uL (150-400); POLYS 62.9 % (36.0-66.0); RBC 4.34 mil/uL (4.20-5.00); RDW 13.5 % (10.5-14.5); WBC 6.3 thou/uL (4.0-11.0)
[2020-01-12 16:15] LABS: CALCIUM 8.9 mg/dL (8.5-10.1); POTASSIUM 3.6 mmol/L (3.5-5.1)
[2020-01-12 16:18] LABS: ALBUMIN 3.8 g/dL (3.4-5.0); TOTAL BILIRUBIN 0.5 mg/dL (0.2-1.0); TOTAL PROTEIN 6.8 g/dL (6.4-8.2)
[2020-01-12] MEDS ORDERED: NAPROSYN500 MG PO (17:31)
[2020-01-12] MEDS ORDERED: NORCO 5-325 TA1 EAC1 PO (17:31)
[2020-01-12 18:04] VITALS: BP 124/64
== END 2020-01-12 18:07 | disposition home or self-care (01) ==
LOC: ER 15:03
PROVIDERS: Physician Assistant
DX: E86.0 Dehydration (principal); G89.29 Other chronic pain; R10.31 Right lower quadrant pain; R10.2 Pelvic and perineal pain; E66.9 Obesity, unspecified; F17.210 Nicotine dependence, cigarettes, uncomplicated; Z79.899 Other long term (current) drug therapy; Z90.49 Acquired absence of other specified parts of digestive tract

== ENCOUNTER 2020-02-01 18:52 | Emergency (ER) | payer BC, OTHER ==
[~2020-02-01] VITALS: Ht 167.6 cm; Wt 86.2 kg
[~2020-02-01 18:52] MED LIST changes: +ZOFRAN 4 MG ORAL4 MG PO
[2020-02-01 20:25] LABS: URINE BILIRUBIN NEGATIVE (Negative); URINE BLOOD NEGATIVE (Negative); URINE CLARITY SL CLOUDY; URINE COLOR YELLOW; URINE GLUCOSE-RANDOM* NEGATIVE (Negative); URINE KETONES NEGATIVE (Negative); URINE LEUKOCYTES-REFLEX NEGATIVE (Negative); URINE NITRITE-REFLEX NEGATIVE (Negative); URINE PROTEIN (DIPSTICK) NEGATIVE (Negative); URINE SPECIFIC GRAVITY >= 1.030 (1.005-1.035); URINE UROBILINOGEN 0.2 E.U./dl (0.2-1.0)
[2020-02-01] MEDS ORDERED: TRAMADOL 50 MG50 MG PO (20:31)
[2020-02-01] MEDS ORDERED: NAPROSYN500 MG PO (20:31)
[2020-02-01 21:02] VITALS: BP 139/96
== END 2020-02-01 21:03 | disposition home or self-care (01) ==
LOC: ER 18:52
PROVIDERS: Emergency Medicine
DX: N83.201 Unspecified ovarian cyst, right side (principal); K66.0 Peritoneal adhesions (postprocedural) (postinfection); N80.9 Endometriosis, unspecified; G89.4 Chronic pain syndrome; F32.9 Major depressive disorder, single episode, unspecified; F41.9 Anxiety disorder, unspecified; F17.210 Nicotine dependence, cigarettes, uncomplicated; Z79.899 Other long term (current) drug therapy; Z90.49 Acquired absence of other specified parts of digestive tract; Z90.711 Acquired absence of uterus with remaining cervical stump; Z90.721 Acquired absence of ovaries, unilateral

== ENCOUNTER 2020-02-28 23:20 | Emergency (ER) | payer BC, OTHER | END 2020-02-29 00:29 | disposition left against medical advice (07) | LOC: ER 23:20 | DX: R21 Rash and other nonspecific skin eruption (principal); Z53.21 Procedure and treatment not carried out due to patient leaving prior to being seen by health care provider ==

== ENCOUNTER 2020-03-07 22:25 | Emergency (ER) | payer BC, OTHER ==
[~2020-03-07] VITALS: Ht 167.6 cm; Wt 86.2 kg
[2020-03-07 23:15] LABS: URINE BILIRUBIN NEGATIVE (Negative); URINE BLOOD NEGATIVE (Negative); URINE CLARITY CLOUDY; URINE COLOR YELLOW; URINE GLUCOSE-RANDOM* NEGATIVE (Negative); URINE KETONES NEGATIVE (Negative); URINE LEUKOCYTES-REFLEX NEGATIVE (Negative); URINE NITRITE-REFLEX NEGATIVE (Negative); URINE PROTEIN (DIPSTICK) NEGATIVE (Negative); URINE SPECIFIC GRAVITY 1.015 (1.005-1.035); URINE UROBILINOGEN 0.2 E.U./dl (0.2-1.0)
[2020-03-08 00:15] VITALS: BP 128/86
[2020-03-08 00:42] LABS: ABSOLUTE NEUTROPHILS 6.7 thou/uL (1.4-8.2); BASOPHILS 1.1 % (0.0-2.0); EOSINOPHILS 2.1 % (0.0-3.0); HEMATOCRIT 43.7 % (37.0-47.0); HEMOGLOBIN 14.5 gm/dL (12.0-15.0); LYMPHOCYTES 23.2 % (24.0-44.0); MCH 31.5 pg (26.0-34.0); MCHC 33.3 g/dL (28.0-37.0); MCV 94.6 fL (80.0-100.0); MONOCYTES 7.4 % (1.0-8.0); PLATELET COUNT 345 thou/uL (150-400); POLYS 66.2 % (36.0-66.0); RBC 4.62 mil/uL (4.20-5.00); RDW 13.4 % (10.5-14.5); WBC 10.2 thou/uL (4.0-11.0)
[2020-03-08 00:45] LABS: CALCIUM 8.8 mg/dL (8.5-10.1); CREATININE 0.9 mg/dL (0.6-1.0); POTASSIUM 3.6 mmol/L (3.5-5.1)
[2020-03-08 00:50] LABS: ALBUMIN 3.7 g/dL (3.4-5.0); TOTAL BILIRUBIN 0.4 mg/dL (0.2-1.0); TOTAL PROTEIN 7.1 g/dL (6.4-8.2)
[2020-03-08] MEDS ORDERED: PERCOCET PO (01:25)
[2020-03-08] MEDS ORDERED: CIPRODEX OTIC7.5 ML OTIC (01:26)
== END 2020-03-08 01:37 | disposition home or self-care (01) ==
LOC: ER 22:25
PROVIDERS: Emergency Medicine
DX: N80.8 Other endometriosis (principal); R10.31 Right lower quadrant pain; F17.210 Nicotine dependence, cigarettes, uncomplicated; Z90.49 Acquired absence of other specified parts of digestive tract; Z79.899 Other long term (current) drug therapy

== ENCOUNTER 2020-04-27 04:36 | Emergency (ER) | payer BC, OTHER ==
[~2020-04-27] VITALS: Ht 167.6 cm; Wt 86.2 kg
[~2020-04-27 04:36] MED LIST changes: +CIPRODEX OTIC7.5 ML OTIC
[2020-04-27 05:39] LABS: URINE BILIRUBIN NEGATIVE (Negative); URINE BLOOD NEGATIVE (Negative); URINE CLARITY CLEAR; URINE COLOR YELLOW; URINE GLUCOSE-RANDOM* NEGATIVE (Negative); URINE KETONES NEGATIVE (Negative); URINE LEUKOCYTES-REFLEX NEGATIVE (Negative); URINE NITRITE-REFLEX NEGATIVE (Negative); URINE PROTEIN (DIPSTICK) NEGATIVE (Negative); URINE SPECIFIC GRAVITY >= 1.030 (1.005-1.035); URINE UROBILINOGEN 0.2 E.U./dl (0.2-1.0)
[2020-04-27 05:54] LABS: ABSOLUTE NEUTROPHILS 4.2 thou/uL (1.4-8.2); BASOPHILS 0.9 % (0.0-2.0); EOSINOPHILS 1.4 % (0.0-3.0); HEMATOCRIT 39.2 % (37.0-47.0); HEMOGLOBIN 13.2 gm/dL (12.0-15.0); LYMPHOCYTES 30.7 % (24.0-44.0); MCH 31.3 pg (26.0-34.0); MCHC 33.8 g/dL (28.0-37.0); MCV 92.7 fL (80.0-100.0); MONOCYTES 9.4 % (1.0-8.0); PLATELET COUNT 323 thou/uL (150-400); POLYS 57.6 % (36.0-66.0); RBC 4.23 mil/uL (4.20-5.00); RDW 12.9 % (10.5-14.5); WBC 7.4 thou/uL (4.0-11.0)
[2020-04-27 06:00] LABS: CALCIUM 9.1 mg/dL (8.5-10.1); CREATININE 0.7 mg/dL (0.6-1.0); POTASSIUM 3.9 mmol/L (3.5-5.1)
[2020-04-27 06:07] LABS: ALBUMIN 4.1 g/dL (3.4-5.0); TOTAL BILIRUBIN 0.4 mg/dL (0.2-1.0); TOTAL PROTEIN 7.1 g/dL (6.4-8.2)
[2020-04-27] MEDS ORDERED: TYLENOL325 M1 PO (07:35)
[2020-04-27 07:39] VITALS: BP 109/66
== END 2020-04-27 07:40 | disposition home or self-care (01) ==
LOC: ER 04:36
PROVIDERS: Emergency Medicine
DX: R10.11 Right upper quadrant pain (principal); F17.210 Nicotine dependence, cigarettes, uncomplicated; Z90.89 Acquired absence of other organs; Z79.899 Other long term (current) drug therapy

== ENCOUNTER 2020-06-25 19:43 | Emergency (ER) | payer OTHER ==
[~2020-06-25] VITALS: Ht 167.6 cm; Wt 86.2 kg
[~2020-06-25 19:43] MED LIST changes: +TYLENOL325 M1 PO
[2020-06-25 22:12] LABS: URINE BILIRUBIN NEGATIVE (Negative); URINE BLOOD NEGATIVE (Negative); URINE CLARITY CLEAR; URINE COLOR YELLOW; URINE GLUCOSE-RANDOM* NEGATIVE (Negative); URINE KETONES NEGATIVE (Negative); URINE LEUKOCYTES-REFLEX NEGATIVE (Negative); URINE NITRITE-REFLEX NEGATIVE (Negative); URINE PROTEIN (DIPSTICK) NEGATIVE (Negative); URINE SPECIFIC GRAVITY >= 1.030 (1.005-1.035); URINE UROBILINOGEN 0.2 E.U./dl (0.2-1.0)
[2020-06-25 22:16] LABS: ABSOLUTE NEUTROPHILS 5.5 thou/uL (1.4-8.2); BASOPHILS 0.7 % (0.0-2.0); EOSINOPHILS 1.4 % (0.0-3.0); HEMATOCRIT 42.4 % (37.0-47.0); HEMOGLOBIN 14.1 gm/dL (12.0-15.0); LYMPHOCYTES 24.5 % (24.0-44.0); MCH 31.3 pg (26.0-34.0); MCHC 33.2 g/dL (28.0-37.0); MCV 94.4 fL (80.0-100.0); MONOCYTES 6.1 % (1.0-8.0); PLATELET COUNT 290 thou/uL (150-400); POLYS 67.3 % (36.0-66.0); RBC 4.49 mil/uL (4.20-5.00); WBC 8.2 thou/uL (4.0-11.0)
[2020-06-25 22:45] LABS: CALCIUM 9.2 mg/dL (8.5-10.1); CREATININE 0.9 mg/dL (0.6-1.0); POTASSIUM 3.9 mmol/L (3.5-5.1)
[2020-06-25 22:51] LABS: ALBUMIN 4.2 g/dL (3.4-5.0); DIRECT BILIRUBIN 0.1 mg/dL (<0.1-0.2); TOTAL BILIRUBIN 0.5 mg/dL (0.2-1.0); TOTAL PROTEIN 7.6 g/dL (6.4-8.2)
[2020-06-26] MEDS ORDERED: PERCOCET 5-3251 EACH PO (00:52)
[2020-06-26 01:07] VITALS: BP 149/102
== END 2020-06-26 01:07 | disposition home or self-care (01) ==
LOC: ER 19:43
PROVIDERS: Emergency Medicine
DX: M54.5 Low back pain (principal); F17.210 Nicotine dependence, cigarettes, uncomplicated; Z90.89 Acquired absence of other organs

== ENCOUNTER 2020-07-15 16:18 | Emergency (ER) | payer OTHER ==
[2020-07-15 16:31] LABS: URINE BILIRUBIN NEGATIVE (Negative); URINE BLOOD NEGATIVE (Negative); URINE CLARITY CLEAR; URINE COLOR YELLOW; URINE GLUCOSE-RANDOM* NEGATIVE (Negative); URINE KETONES NEGATIVE (Negative); URINE LEUKOCYTES-REFLEX NEGATIVE (Negative); URINE NITRITE-REFLEX NEGATIVE (Negative); URINE PROTEIN (DIPSTICK) NEGATIVE (Negative); URINE UROBILINOGEN 0.2 E.U./dl (0.2-1.0)
[2020-07-15 17:14] VITALS: BP 129/87
== END 2020-07-15 17:15 | disposition left against medical advice (07) ==
LOC: ER 16:18
PROVIDERS: Emergency Medicine
DX: R10.31 Right lower quadrant pain (principal); Z53.21 Procedure and treatment not carried out due to patient leaving prior to being seen by health care provider

== ENCOUNTER → 2020-07-16 | Emergency (ER) | payer OTHER ==
[~2020-07-16] VITALS: Ht 167.6 cm; Wt 86.2 kg
[2020-07-16 17:18] VITALS: BP 136/108
[2020-07-16 17:42] LABS: URINE BILIRUBIN NEGATIVE (Negative); URINE BLOOD NEGATIVE (Negative); URINE CLARITY CLEAR; URINE COLOR YELLOW; URINE GLUCOSE-RANDOM* NEGATIVE (Negative); URINE KETONES NEGATIVE (Negative); URINE LEUKOCYTES-REFLEX NEGATIVE (Negative); URINE NITRITE-REFLEX NEGATIVE (Negative); URINE PROTEIN (DIPSTICK) NEGATIVE (Negative); URINE SPECIFIC GRAVITY >= 1.030 (1.005-1.035); URINE UROBILINOGEN 0.2 E.U./dl (0.2-1.0)
[2020-07-16 19:12] LABS: ABSOLUTE NEUTROPHILS 4.4 thou/uL (1.4-8.2); BASOPHILS 0.7 % (0.0-2.0); EOSINOPHILS 0.9 % (0.0-3.0); HEMATOCRIT 39.9 % (37.0-47.0); HEMOGLOBIN 13.9 gm/dL (12.0-15.0); LYMPHOCYTES 27.3 % (24.0-44.0); MCH 32.1 pg (26.0-34.0); MCHC 34.7 g/dL (28.0-37.0); MCV 92.4 fL (80.0-100.0); MONOCYTES 5.8 % (1.0-8.0); PLATELET COUNT 259 thou/uL (150-400); POLYS 65.3 % (36.0-66.0); RBC 4.32 mil/uL (4.20-5.00); RDW 12.9 % (10.5-14.5); WBC 6.7 thou/uL (4.0-11.0)
[2020-07-16 19:29] LABS: CALCIUM 8.9 mg/dL (8.5-10.1); CREATININE 0.9 mg/dL (0.6-1.0)
[2020-07-16 19:35] LABS: TOTAL BILIRUBIN 0.9 mg/dL (0.2-1.0); TOTAL PROTEIN 6.9 g/dL (6.4-8.2)
== END ==
LOC: ER 16:58
PROVIDERS: Emergency Medicine
DX: R10.9 Unspecified abdominal pain (principal); R19.5 Other fecal abnormalities; Z53.21 Procedure and treatment not carried out due to patient leaving prior to being seen by health care provider

== ENCOUNTER 2020-07-17 00:56 | Emergency (ER) | payer OTHER ==
[~2020-07-17] VITALS: Ht 167.6 cm; Wt 86.2 kg
[2020-07-17 02:10] VITALS: BP 122/80
== END 2020-07-17 02:10 | disposition home or self-care (01) ==
LOC: ER 00:56
DX: G89.29 Other chronic pain (principal); R10.84 Generalized abdominal pain; F17.210 Nicotine dependence, cigarettes, uncomplicated; Z90.89 Acquired absence of other organs; Z90.49 Acquired absence of other specified parts of digestive tract; Z79.899 Other long term (current) drug therapy

== ENCOUNTER 2020-11-07 22:46 | Emergency (ER) | payer OTHER ==
[~2020-11-07] VITALS: Ht 167.6 cm; Wt 86.2 kg
[2020-11-08 00:12] LABS: ABSOLUTE NEUTROPHILS 3.2 thou/uL (1.4-8.2); BASOPHILS 0.6 % (0.0-2.0); EOSINOPHILS 0.6 % (0.0-3.0); HEMOGLOBIN 13.8 gm/dL (12.0-15.0); LYMPHOCYTES 21.3 % (24.0-44.0); MCH 33.1 pg (26.0-34.0); MCHC 36.2 g/dL (28.0-37.0); MCV 91.5 fL (80.0-100.0); MONOCYTES 8.2 % (1.0-8.0); PLATELET COUNT 215 thou/uL (150-400); POLYS 69.3 % (36.0-66.0); RBC 4.16 mil/uL (4.20-5.00); RDW 12.6 % (10.5-14.5); WBC 4.7 thou/uL (4.0-11.0)
[2020-11-08 00:21] LABS: ANION GAP 10 mmol/L (7-16); BUN 9 mg/dL (7-18); CALCIUM 8.6 mg/dL (8.5-10.1); CHLORIDE 105 mmol/L (98-107); CO2 22 mmol/L (21-32); CREATININE 0.9 mg/dL (0.6-1.0); GLUCOSE 103 mg/dL (74-106); POTASSIUM 3.5 mmol/L (3.5-5.1); SODIUM 137 mmol/L (136-145)
[2020-11-08 00:29] LABS: ALBUMIN 3.6 g/dL (3.4-5.0); SGOT 24 U/L (15-37); SGPT 27 U/L (30-65); TOTAL BILIRUBIN 0.3 mg/dL (0.2-1.0); TROPONIN-I <0.06 ng/mL (<0.06)
[2020-11-08] MEDS ORDERED: GUAIFENESIN-CODE5 ML PO (02:42)
[2020-11-08] MEDS ORDERED: ZOFRAN ODT4 MG PO (02:43)
[2020-11-08 03:02] VITALS: BP 126/82
--- NOTE | 2020-11-08 06:44 | EKG ---
[place] [address] [employer] [place] [address] ELECTROCARDIOGRAM REPORT Name: REMBERTOBINGJAY LOCKE [id number] Admission: 11/07/20 Attend Phys: Discharge: 11/08/20 Date of : 78 Report #: [id number] [facility] ED Test Date: 2020-11-07 Test Time: 23:19:13 Pat Name: BING SR Department: Room: Gender: F Exam Proctor: cecile : 1980 Requested By: Marivel Brennan Order Number: [id number] MD: David Hernadez Measurements Intervals [place] Rate: 92 P: 51 PA: 140 QRS: 19 QRSD: 90 T: 27 QT: 355 QTc: 440 Interpretive Statements Sinus rhythm Compared to ECG 10/27/2016 14:35:24 No significant changes Electronically Signed On 11-08-2020 6:44:05 CDT by David Hernadez [email or web address] <ELECTRONICALLY SIGNED> By: David Hernadez MD, [facility] 11/08/20 0644 2319 2319 David Hernadez MD, FACC /EPI
== END 2020-11-08 03:03 | disposition home or self-care (01) ==
LOC: ER 22:46
PROVIDERS: Nurse Practitioner Family
DX: U07.1 COVID-19 (principal); R10.84 Generalized abdominal pain; R06.00 Dyspnea, unspecified; F17.210 Nicotine dependence, cigarettes, uncomplicated; Z90.49 Acquired absence of other specified parts of digestive tract; Z90.89 Acquired absence of other organs; Z90.710 Acquired absence of both cervix and uterus; Z79.899 Other long term (current) drug therapy

== ENCOUNTER 2020-11-12 15:38 | Emergency (ER) | payer OTHER ==
[~2020-11-12] VITALS: Ht 167.6 cm; Wt 86.2 kg
[~2020-11-12 15:38] MED LIST changes: +GUAIFENESIN-CODE5 ML PO
[2020-11-12 15:42] VITALS: BP 125/93
[2020-11-12 16:18] LABS: URINE BILIRUBIN NEGATIVE (Negative); URINE BLOOD NEGATIVE (Negative); URINE CLARITY CLEAR; URINE COLOR YELLOW; URINE GLUCOSE-RANDOM* NEGATIVE (Negative); URINE KETONES NEGATIVE (Negative); URINE LEUKOCYTES-REFLEX NEGATIVE (Negative); URINE NITRITE-REFLEX NEGATIVE (Negative); URINE PROTEIN (DIPSTICK) NEGATIVE (Negative); URINE SPECIFIC GRAVITY 1.015 (1.005-1.035); URINE UROBILINOGEN 0.2 E.U./dl (0.2-1.0)
[2020-11-12] MEDS ORDERED: ULTRAM 50MG TAB50 MG PO (16:51)
== END 2020-11-12 18:10 | disposition home or self-care (01) ==
LOC: ER 15:38
PROVIDERS: Nurse Practitioner
DX: M25.552 Pain in left hip (principal); R19.7 Diarrhea, unspecified; M79.10 Myalgia, unspecified site; F17.210 Nicotine dependence, cigarettes, uncomplicated; Z90.89 Acquired absence of other organs; Z90.49 Acquired absence of other specified parts of digestive tract; Z79.899 Other long term (current) drug therapy

== ENCOUNTER 2020-12-04 20:03 | Emergency (ER) | payer OTHER ==
[~2020-12-04] VITALS: Ht 167.6 cm; Wt 88.5 kg
[2020-12-04 20:31] LABS: URINE BLOOD NEGATIVE (Negative); URINE CLARITY CLEAR; URINE COLOR YELLOW; URINE GLUCOSE-RANDOM* NEGATIVE (Negative); URINE KETONES TRACE (Negative); URINE LEUKOCYTES-REFLEX NEGATIVE (Negative); URINE NITRITE-REFLEX NEGATIVE (Negative); URINE PROTEIN (DIPSTICK) NEGATIVE (Negative); URINE SPECIFIC GRAVITY >= 1.030 (1.005-1.035); URINE UROBILINOGEN 0.2 E.U./dl (0.2-1.0)
[2020-12-04 20:41] LABS: ICTOTEST (BILI CONFIRMATORY) Negative (Negative); URINE BILIRUBIN NEGATIVE (Negative)
[2020-12-04 21:00] LABS: ABSOLUTE NEUTROPHILS 4.8 thou/uL (1.4-8.2); BASOPHILS 0.9 % (0.0-2.0); HEMATOCRIT 41.1 % (37.0-47.0); HEMOGLOBIN 13.9 gm/dL (12.0-15.0); LYMPHOCYTES 18.5 % (24.0-44.0); MCH 31.8 pg (26.0-34.0); MCHC 33.9 g/dL (28.0-37.0); MCV 93.7 fL (80.0-100.0); MONOCYTES 9.1 % (1.0-8.0); PLATELET COUNT 265 thou/uL (150-400); POLYS 69.5 % (36.0-66.0); RBC 4.38 mil/uL (4.20-5.00); RDW 13.3 % (10.5-14.5); WBC 6.9 thou/uL (4.0-11.0)
[2020-12-04 21:08] LABS: CALCIUM 8.8 mg/dL (8.5-10.1); POTASSIUM 3.6 mmol/L (3.5-5.1)
[2020-12-04 21:16] LABS: DIRECT BILIRUBIN 0.1 mg/dL (<0.1-0.2); TOTAL BILIRUBIN 0.7 mg/dL (0.2-1.0); TOTAL PROTEIN 7.3 g/dL (6.4-8.2)
[2020-12-04 23:05] VITALS: BP 117/78
[2020-12-04] MEDS ORDERED: NORCO5 PO (23:06)
== END 2020-12-04 23:05 | disposition home or self-care (01) ==
LOC: ER 20:03
PROVIDERS: Emergency Medicine
DX: R10.9 Unspecified abdominal pain (principal); F17.210 Nicotine dependence, cigarettes, uncomplicated; Z79.899 Other long term (current) drug therapy

== ENCOUNTER 2021-01-29 17:34 | Emergency (ER) | payer OTHER ==
[~2021-01-29] VITALS: Ht 167.6 cm; Wt 89.8 kg
[~2021-01-29 17:34] MED LIST changes: +NORCO5 PO
[2021-01-29 17:53] LABS: URINE BILIRUBIN NEGATIVE (Negative); URINE BLOOD TRACE (Negative); URINE CLARITY CLEAR; URINE COLOR YELLOW; URINE GLUCOSE-RANDOM* TRACE (Negative); URINE KETONES NEGATIVE (Negative); URINE PROTEIN (DIPSTICK) 2+ (Negative); URINE SPECIFIC GRAVITY 1.025 (1.005-1.035)
[2021-01-29 17:55] LABS: URINE LEUKOCYTES-REFLEX 1+ (Negative); URINE NITRITE-REFLEX POSITIVE (Negative)
[2021-01-29 18:15] LABS: CASTS None Seen /LPF (None Seen); SQUAMOUS 0-3 Few /LPF (0-3)
[2021-01-29 18:16] LABS: CRYSTALS None Seen /LPF (None Seen); URINE RBC 1-2 Rare /HPF (NONE SEEN)
[2021-01-29 19:43] LABS: ABSOLUTE NEUTROPHILS 3.8 thou/uL (1.4-8.2); BASOPHILS 0.9 % (0.0-2.0); EOSINOPHILS 1.6 % (0.0-3.0); HEMATOCRIT 38.5 % (37.0-47.0); LYMPHOCYTES 25.9 % (24.0-44.0); MCH 31.8 pg (26.0-34.0); MCHC 33.8 g/dL (28.0-37.0); MCV 94.3 fL (80.0-100.0); MONOCYTES 10.2 % (1.0-8.0); PLATELET COUNT 276 thou/uL (150-400); POLYS 61.4 % (36.0-66.0); RBC 4.09 mil/uL (4.20-5.00); WBC 6.2 thou/uL (4.0-11.0)
[2021-01-29 19:47] LABS: CALCIUM 8.5 mg/dL (8.5-10.1); CREATININE 0.8 mg/dL (0.6-1.0); POTASSIUM 3.8 mmol/L (3.5-5.1)
[2021-01-29 19:53] LABS: ALBUMIN 3.7 g/dL (3.4-5.0); TOTAL BILIRUBIN 0.4 mg/dL (0.2-1.0); TOTAL PROTEIN 7.2 g/dL (6.4-8.2)
[2021-01-29] MEDS ORDERED: LEVOFLOXACIN750 MG PO (20:31)
[2021-01-29] MEDS ORDERED: PHENAZOPYRIDIN200 M2 PO (20:31)
[2021-01-29 20:41] VITALS: BP 122/66
== END 2021-01-29 20:42 | disposition home or self-care (01) ==
LOC: ER 17:34
PROVIDERS: Nurse Practitioner
DX: N12 Tubulo-interstitial nephritis, not specified as acute or chronic (principal); F17.210 Nicotine dependence, cigarettes, uncomplicated; Z90.89 Acquired absence of other organs; Z87.442 Personal history of urinary calculi; Z98.890 Other specified postprocedural states

== ENCOUNTER 2021-02-01 23:18 | Inpatient (IN) | payer OTHER ==
[~2021-02-01] VITALS: Ht 167.6 cm; Wt 94.1 kg
[~2021-02-01 23:18] MED LIST changes: +LEVOFLOXACIN750 MG PO; +PHENAZOPYRIDIN200 M2 PO
[2021-02-01 23:22] VITALS: BP 123/94
[2021-02-02 00:19] LABS: URINE BILIRUBIN NEGATIVE (Negative); URINE BLOOD NEGATIVE (Negative); URINE CLARITY CLEAR; URINE GLUCOSE-RANDOM* TRACE (Negative); URINE KETONES TRACE (Negative); URINE LEUKOCYTES-REFLEX NEGATIVE (Negative); URINE PROTEIN (DIPSTICK) 1+ (Negative); URINE SPECIFIC GRAVITY >= 1.030 (1.005-1.035)
[2021-02-02 00:20] LABS: URINE COLOR ORANGE; URINE NITRITE-REFLEX POSITIVE (Negative)
[2021-02-02 00:29] LABS: BACTERIA-REFLEX 1-9 Few /HPF (None Seen); CALCIUM OXALATE 0-3 Few /LPF (None Seen); CASTS None Seen /LPF (None Seen); MUCUS 0-3 Light strn/LPF (None Seen); SQUAMOUS 0-3 Few /LPF (0-3); URINE RBC 1-2 Rare /HPF (NONE SEEN); URINE WBC-REFLEX 0-5 Rare /HPF (0-5)
[2021-02-02 01:46] LABS: ABSOLUTE NEUTROPHILS 9.1 thou/uL (1.4-8.2); BASOPHILS 0.6 % (0.0-2.0); EOSINOPHILS 0.4 % (0.0-3.0); HEMATOCRIT 40.4 % (37.0-47.0); HEMOGLOBIN 13.8 gm/dL (12.0-15.0); LYMPHOCYTES 6.8 % (24.0-44.0); MCH 32.2 pg (26.0-34.0); MCHC 34.3 g/dL (28.0-37.0); MONOCYTES 5.6 % (1.0-8.0); PLATELET COUNT 293 thou/uL (150-400); POLYS 86.6 % (36.0-66.0); RDW 12.8 % (10.5-14.5); WBC 10.5 thou/uL (4.0-11.0)
[2021-02-02 01:53] LABS: ANION GAP 8 mmol/L (7-16); BUN 18 mg/dL (7-18); CALCIUM 9.3 mg/dL (8.5-10.1); CHLORIDE 105 mmol/L (98-107); CO2 26 mmol/L (21-32); CREATININE 1.1 mg/dL (0.6-1.0); GLUCOSE 126 mg/dL (74-106); POTASSIUM 4.1 mmol/L (3.5-5.1); SODIUM 139 mmol/L (136-145)
[2021-02-02 01:59] LABS: ALBUMIN 4.2 g/dL (3.4-5.0); DIRECT BILIRUBIN < 0.1 mg/dL (<0.1-0.2); SGOT 15 U/L (15-37); SGPT 28 U/L (14-59); TOTAL BILIRUBIN 0.3 mg/dL (0.2-1.0); TOTAL PROTEIN 7.8 g/dL (6.4-8.2)
[2021-02-02 06:35] VITALS: BP 124/83
[2021-02-02 07:14] VITALS: BP 124/88
[2021-02-02 08:42] VITALS: BP 139/87
[2021-02-02 15:48] VITALS: BP 113/79
--- NOTE | 2021-02-02 17:01 | NUR ---
ASSUMED CARE OF PT XFERRED FROM ER AT 1000 THIS MORNING. PT C/O N/V AND ABD CRAMPING AND PAIN. PT IS A/OX4, EYES PERRLA, LUNGS ARE CLEAR IN ALL LOPEZ. ABD SOFT AND TENDER IN ULQ. ASSESSMENTS NOTED IN CHART AND OTHERWISE UNREMARKABLE. IV IN RT HAND WITH D5 1/2 NS AT 75ML/HR. WILL CONTINUE TO MONITOR. CALL LIGHT AND OTHER NEEDS ARE WITHIN REACH. PT IS INDEP. AND HAS NO ISSUES AMBULATING. MEDS AND TX GIVEN NEEDED AND SCHEDULED.
[2021-02-02 20:14] VITALS: BP 115/80
[2021-02-02 21:19] VITALS: BP 115/80
--- NOTE | 2021-02-03 02:57 | NUR ---
UPON SHIFT REPORT, PT EXPRESSING CONCERN FOR RECEIVING HOME MEDICATION EFFEXOR, STATING MEDICATION IN HER PURSE- ADVISED TO HAVE FAMILY TAKE HOME OR STORE WITH PHARMACY, PT RECEPTIVE TO ADVISEMENT. HOME MEDICATIONS REVIEWED, ONCMARIE TAPE RULES PRINTING MACHINE OPERATOR NOTIFIED, EMAR UPDATED. UPON SHIFT ASSESSMENT, PT AOX4. PT REPORTS 9-10/10 ABDOMINAL, BACK, AND VAGINAL PAIN, STATING BURNING WITH URINATION. PT RECEIVING PRN PO OXYCODONE Q4HR, HAS PRN PO APAP Q4HR AVAILABLE. PT DENIES SOB WHILE ON ROOM AIR. PT TOLERATING PO INTAKE OF FLUIDS AND REGULAR DIET WITHOUT ISSUE. PT WITH INTERMITTENT NAUSEA WITHOUT EMESIS. PT RECEIVING PRN IV ZOFRAN Q4HR. PT AMBULATING INDEPENDENTLY IN ROOM AND TO BATHROOM, RESTING IN BED OTHERWISE. FREQUENT REPOSITIONING ENCOURAGED WHILE IN BED, PT NOTED TO SHIFT INDEPENDENTLY. NONPITTING EDEMA NOTED TO LLE. SENSATION INTACT, CAPILLARY REFILL LESS THAN 3SEC, PERIPHERAL PULSES PALPABLE IN ALL EXTREMITIES. THROUGHOUT SHIFT, PT REPORTING NAUSEA UNRELIEVED WITH ZOFRAN, REPORTING ADVERSE REACTIONS TO COMPAZINE AND HALDOL- ALLERGIES UPDATED, AND EXPRESSING PREVIOUS EFFECTIVENESS WITH PHENERGAN. ONCALL TAPE RULES PRINTING MACHINE OPERATOR NOTIFIED, EMAR UPDATED. PT NOTIFIED STAFF OF UNRELIEVED PAIN WITH OXYCODONE, EXPRESSING PREVIOUS EFFECTIVENESS WITH MORPHINE. ONCALL TAPE RULES PRINTING MACHINE OPERATOR NOTIFIED, EMAR UPDATED. PT ENCOUR
[2021-02-03 05:33] LABS: HEMATOCRIT 32.4 % (37.0-47.0); MCH 32.5 pg (26.0-34.0); MCHC 33.8 g/dL (28.0-37.0); MCV 96.2 fL (80.0-100.0); RBC 3.37 mil/uL (4.20-5.00); RDW 13.2 % (10.5-14.5); WBC 4.8 thou/uL (4.0-11.0)
[2021-02-03 05:47] LABS: CREATININE 0.8 mg/dL (0.6-1.0); POTASSIUM 3.9 mmol/L (3.5-5.1)
[2021-02-03 09:10] VITALS: BP 139/88
[2021-02-03 18:12] VITALS: BP 156/91
--- NOTE | 2021-02-03 18:30 | NUR ---
PT ASSESSED AT START OF SHIFT. C/O ABD PAIN AND REQUESTING MEDS Q2HRS. DR. CHONG IN AND DC'D IV MORPHINE. ENEMA AND MAG CITRATE GIVEN WITHOUT STOOL OF THIS TIME. PT STRONGLY ENCOURAGED TO AMBULATE HALLS AND SHE AGREED BUT HAS NOT DONE SO. IS PASSING A LOT OF FLATUS. NEW IV PLACED PT PULLED OUT WHILE ASLEEP THIS AFTERNOON.
[2021-02-03 19:18] VITALS: BP 128/88
[2021-02-04 03:57] VITALS: BP 133/85
--- NOTE | 2021-02-04 04:41 | NUR ---
ASSESSED AT START OF SHIFT. PT C/O ABD PAIN AND BACK PAIN. PO OXYCODONE GIVEN. ENCOURAGED PT TO WALK AROUND UNIT. PT UP AD LOBO. WALKED THE HALLWAYS TONIGHT. TAP WATER ENEMA GIVEN PT STATED HAD A HUGE BOWELMOVEMENT AND COUPLE LOOSE STOOLS. IV INTACT AND FLUIDS INFUSING. ZOFRAN GIVEN FOR NAUSEA. CALL LIGHT AT REACH WILL CONT TO MONITOR.
[2021-02-04 07:14] VITALS: BP 141/98
--- NOTE | 2021-02-04 11:55 | NUR ---
ASSESSMENT: CM REVIEWED CHART AND SPOKE WITH ATTENDING WELL PATIENT. PT WAS ADMITTED DUE TO ABDOMINAL PAIN/UTI. PT IS CURRENTLY ON IV ANBX. DR. OSEGUERA HAS ALSO BEEN CONSULTED AND AWAITING INPUT AT THIS TIME. PT REPORTS THAT SHE LIVES IN A HOUSE WITH A ROOMATE. PT REPORTS ABOUT 6 STEPS TO ENTER THE HOME AND NO STEPS ONCE INSIDE. PT REPORTS BEING FULLY INDEPENDENT WITH ADLS AND AMBULATION. PT REPORTS THAT SHE HAS NO ACTIVE INSURANCE OR PCP. CM PROVIDED PATIENT WITH HEALTH RESOURCE PACKET/FIND A PHYSICIAN RESOURCE SHEET/ WELL [facility] INFORMATION. CM NOTIFIED BEDSIDE RN TO CONTACT CM AT TIME OF DISCHARGE AND CM CAN HELP ASSIST WITH COST OF ANY NEW MEDICATION IF NEEDED. CM WILL CONTINUE TO FOLLOW.
--- NOTE | 2021-02-04 12:12 | NUR ---
ASSUMED PT CARE THIS AM. PT A&OX4, ABLE TO MAKE NEEDS KNOWN. IV PATENT, FLUIDS INFUSING. PATIENT COMPLAINED OF NAUSEA, GAVE NAUSEA MEDS PER EMAR. PATIENT GIVEN PAIN MEDS PER EMAR, SLEEPING UPON REASSESSMENT. PATIENT AMBULATORY AROUND ROOM INDEPENDENTLY. PATIENT REPORTING NO NUMBNESS OR TINGLING. PATIENT TOOK MEDICAITONS WITHOUT ISSUE THIS AM. CALL LIGHT WITHIN REACH.
[2021-02-04 15:10] VITALS: BP 107/73
[2021-02-04 19:27] VITALS: BP 119/84
--- NOTE | 2021-02-05 03:17 | NUR ---
ASSESSED AT START OF SHIFT PT A&OX4. C/O IV PRESSURE, NEW IV 20G INSERTED ON RT UA AFTERX2 ATTEMPT. PT C/O PAIN AND VAGINA DISCOMFORT STATED IT HURTS AND FEELS HUGE. OXYCODONE PROVIDED. ENEMA ALSO GIVEN AND PT HAD MULTIPLE LIQUID STOOL OUTPUT. NPO AT MIDNIGHT. ONCALL MUSEUM EXHIBIT TECHNICIAN NOTIFIED FOR IV PAIIN MEDS DUE TO PT PAIN. FENTANLY GIVENX1. NO RELIEF. ICE PACK ALSO PROVIDED FOR COMFORT. CALL LIGHT AT REACH. PT UP AD LOBO. WILL CONT TO MONITOR
[2021-02-05 04:38] VITALS: BP 131/95
[2021-02-05 05:40] LABS: HEMATOCRIT 36.6 % (37.0-47.0); HEMOGLOBIN 12.3 gm/dL (12.0-15.0); MCH 32.3 pg (26.0-34.0); MCHC 33.7 g/dL (28.0-37.0); RBC 3.81 mil/uL (4.20-5.00); RDW 13.2 % (10.5-14.5); WBC 4.7 thou/uL (4.0-11.0)
[2021-02-05 06:02] LABS: CALCIUM 8.4 mg/dL (8.5-10.1); CREATININE 0.8 mg/dL (0.6-1.0); POTASSIUM 3.8 mmol/L (3.5-5.1)
[2021-02-05 08:16] VITALS: BP 125/88
--- NOTE | 2021-02-05 10:41 | NUR ---
ASSUMED PT CARE THIS AM. PT A&OX4, ABLE TO MAKE NEEDS KNOWN. IV REMAINS PATENT, FLUIDS INFUSING. PATIENT REPORTS ABOMINAL PAIN THAT RESPONDS WELL TO PAIN MEDS GIVEN PER EMAR. PATIENT REMAINS UP AD LOBO AND AMBULATES INDEPENDENTLY TO THE BATHROOM. PATIENT REPORTS NO NAUSEA, NUMBNESS, OR TINGLING. PATIENT IS ON ROOM AIR. FALL PRECAUTIONS ARE IN PLACE, CALL LIGHT WITHIN REACH.
[2021-02-05] MEDS ORDERED: PERCOCET PO (12:31)
[2021-02-05] MEDS ORDERED: MACROBID 100 M100 MG PO (12:31)
[2021-02-05 12:54] VITALS: BP 125/88
--- NOTE | 2021-02-05 14:37 | NUR ---
ON-GOING ASSESSMENT: CM REVIEWED CHART AND SPOKE WITH PATIENT AT THE BEDSIDE. PT HAS ORDERS TO DISCHARGE HOME TODAY AND NEEDING ASSISTANCE WITH MEDICATIONS. CM SPOKE WITH CM DIRECTOR AND APPROVAL FOR VOUCHERING HER ANBX MACROBID COSTING 15.69. PT APPRECIATIE AND DENIES ANY OTHER NEEDS FROM CM. CASE CLOSED.
== END 2021-02-05 15:11 | disposition home or self-care (01) | DRG 690 ==
LOC: ER 23:18 → 4S 02-02 06:04 → EROBS 02-02 06:04 → 4S 02-02 07:31
PROVIDERS: Emergency Medicine; ADMIT Hospitalist; ATTEND Hospitalist
DX: N39.0 Urinary tract infection, site not specified (principal); E87.2 Acidosis; K90.49 Malabsorption due to intolerance, not elsewhere classified; F32.9 Major depressive disorder, single episode, unspecified; F41.9 Anxiety disorder, unspecified; E86.0 Dehydration; Z87.891 Personal history of nicotine dependence; Z90.49 Acquired absence of other specified parts of digestive tract
CPT/HCPCS: 10195

== ENCOUNTER 2021-03-17 14:13 | Emergency (ER) | payer OTHER ==
[~2021-03-17] VITALS: Ht 167.6 cm; Wt 88.5 kg
[~2021-03-17 14:13] MED LIST changes: +MACROBID 100 M100 MG PO
[2021-03-17 14:14] VITALS: BP 131/87
[2021-03-17 14:38] LABS: ABSOLUTE NEUTROPHILS 4.1 thou/uL (1.4-8.2); BASOPHILS 0.8 % (0.0-2.0); EOSINOPHILS 1.9 % (0.0-3.0); HEMOGLOBIN 13.2 gm/dL (12.0-15.0); LYMPHOCYTES 32.3 % (24.0-44.0); MCH 32.1 pg (26.0-34.0); MCHC 34.7 g/dL (28.0-37.0); MCV 92.5 fL (80.0-100.0); MONOCYTES 6.3 % (1.0-8.0); PLATELET COUNT 261 thou/uL (150-400); POLYS 58.7 % (36.0-66.0); RDW 12.5 % (10.5-14.5); WBC 6.9 thou/uL (4.0-11.0)
[2021-03-17 14:40] LABS: URINE BILIRUBIN NEGATIVE (Negative); URINE BLOOD NEGATIVE (Negative); URINE CLARITY CLEAR; URINE COLOR YELLOW; URINE GLUCOSE-RANDOM* NEGATIVE (Negative); URINE KETONES NEGATIVE (Negative); URINE LEUKOCYTES-REFLEX NEGATIVE (Negative); URINE NITRITE-REFLEX NEGATIVE (Negative); URINE PROTEIN (DIPSTICK) NEGATIVE (Negative); URINE UROBILINOGEN 0.2 E.U./dl (0.2-1.0)
[2021-03-17 14:49] LABS: CALCIUM 8.8 mg/dL (8.5-10.1); POTASSIUM 3.6 mmol/L (3.5-5.1)
[2021-03-17 14:55] LABS: ALBUMIN 4.1 g/dL (3.4-5.0); TOTAL BILIRUBIN 0.3 mg/dL (0.2-1.0); TOTAL PROTEIN 7.3 g/dL (6.4-8.2)
[2021-03-17] MEDS ORDERED: NORCO7.5 PO (17:54)
[2021-03-17] MEDS ORDERED: ONDANSETRON HCL4 M2 PO (17:54)
== END 2021-03-17 17:55 | disposition home or self-care (01) ==
LOC: ER 14:13
PROVIDERS: Emergency Medicine
DX: R10.11 Right upper quadrant pain (principal); F32.9 Major depressive disorder, single episode, unspecified; F41.9 Anxiety disorder, unspecified; F17.210 Nicotine dependence, cigarettes, uncomplicated; Z90.711 Acquired absence of uterus with remaining cervical stump; Z90.721 Acquired absence of ovaries, unilateral; Z90.49 Acquired absence of other specified parts of digestive tract; Z79.899 Other long term (current) drug therapy; Z90.89 Acquired absence of other organs; Z88.1 Allergy status to other antibiotic agents; Z88.6 Allergy status to analgesic agent

== ENCOUNTER 2021-05-19 22:17 | Emergency (ER) | payer OTHER ==
[~2021-05-19] VITALS: Ht 167.6 cm; Wt 90.7 kg
[~2021-05-19 22:17] MED LIST changes: +NORCO7.5 PO
[2021-05-19] MEDS ORDERED: NORCO5 PO (23:06)
[2021-05-19 23:11] VITALS: BP 124/71
== END 2021-05-19 23:13 | disposition home or self-care (01) ==
LOC: ER 22:17
DX: J06.9 Acute upper respiratory infection, unspecified (principal); F41.9 Anxiety disorder, unspecified; F32.9 Major depressive disorder, single episode, unspecified; F17.210 Nicotine dependence, cigarettes, uncomplicated; Z90.49 Acquired absence of other specified parts of digestive tract; Z87.442 Personal history of urinary calculi; Z90.89 Acquired absence of other organs; Z90.710 Acquired absence of both cervix and uterus; Z98.890 Other specified postprocedural states; Z79.899 Other long term (current) drug therapy; Z88.8 Allergy status to other drugs, medicaments and biological substances

== ENCOUNTER 2021-05-23 01:38 | Emergency (ER) | payer OTHER ==
[~2021-05-23] VITALS: Ht 160 cm; Wt 77.1 kg
[2021-05-23 04:05] LABS: ABSOLUTE NEUTROPHILS 3.1 thou/uL (1.4-8.2); BASOPHILS 0.9 % (0.0-2.0); EOSINOPHILS 1.6 % (0.0-3.0); HEMOGLOBIN 13.8 gm/dL (12.0-15.0); LYMPHOCYTES 36.6 % (24.0-44.0); MCH 31.6 pg (26.0-34.0); MCHC 33.8 g/dL (28.0-37.0); MCV 93.5 fL (80.0-100.0); MONOCYTES 7.6 % (1.0-8.0); PLATELET COUNT 269 thou/uL (150-400); POLYS 53.3 % (36.0-66.0); RBC 4.38 mil/uL (4.20-5.00); WBC 5.9 thou/uL (4.0-11.0)
[2021-05-23 04:25] LABS: ANION GAP 9 mmol/L (7-16); BUN 16 mg/dL (7-18); CHLORIDE 103 mmol/L (98-107); CO2 25 mmol/L (21-32); CREATININE 0.8 mg/dL (0.6-1.0); GLUCOSE 83 mg/dL (74-106); SODIUM 137 mmol/L (136-145)
[2021-05-23 04:28] LABS: URINE BILIRUBIN NEGATIVE (Negative); URINE BLOOD NEGATIVE (Negative); URINE CLARITY CLEAR; URINE COLOR YELLOW; URINE GLUCOSE-RANDOM* NEGATIVE (Negative); URINE KETONES NEGATIVE (Negative); URINE LEUKOCYTES-REFLEX NEGATIVE (Negative); URINE NITRITE-REFLEX NEGATIVE (Negative); URINE PROTEIN (DIPSTICK) NEGATIVE (Negative); URINE UROBILINOGEN 0.2 E.U./dl (0.2-1.0)
[2021-05-23 04:32] LABS: ALBUMIN 3.9 g/dL (3.4-5.0); LIPASE 80 U/L (73-393); SGOT 45 U/L (15-37); SGPT 28 U/L (30-65); TOTAL BILIRUBIN 0.5 mg/dL (0.2-1.0); TOTAL PROTEIN 7.6 g/dL (6.4-8.2)
[2021-05-23 04:33] LABS: DIRECT BILIRUBIN < 0.1 mg/dL (<0.1-0.2)
[2021-05-23 06:59] VITALS: BP 129/84
== END 2021-05-23 07:13 | disposition home or self-care (01) ==
LOC: ER 01:38
PROVIDERS: Student in an Organized Health Care Education/Training Program
DX: J06.9 Acute upper respiratory infection, unspecified (principal); R05.8 Other specified cough; R10.30 Lower abdominal pain, unspecified; F32.9 Major depressive disorder, single episode, unspecified; F41.9 Anxiety disorder, unspecified; F17.210 Nicotine dependence, cigarettes, uncomplicated; Z90.89 Acquired absence of other organs; Z87.442 Personal history of urinary calculi; Z90.49 Acquired absence of other specified parts of digestive tract; Z90.711 Acquired absence of uterus with remaining cervical stump; Z90.721 Acquired absence of ovaries, unilateral; Z79.891 Long term (current) use of opiate analgesic; Z79.899 Other long term (current) drug therapy; Z88.5 Allergy status to narcotic agent; Z88.8 Allergy status to other drugs, medicaments and biological substances

== ENCOUNTER 2021-06-06 17:24 | Emergency (ER) | payer OTHER ==
[~2021-06-06] VITALS: Ht 167.6 cm; Wt 90.7 kg
[2021-06-06 18:18] LABS: URINE BILIRUBIN NEGATIVE (Negative); URINE BLOOD NEGATIVE (Negative); URINE CLARITY CLEAR; URINE COLOR YELLOW; URINE GLUCOSE-RANDOM* NEGATIVE (Negative); URINE KETONES NEGATIVE (Negative); URINE LEUKOCYTES-REFLEX NEGATIVE (Negative); URINE NITRITE-REFLEX NEGATIVE (Negative); URINE PROTEIN (DIPSTICK) NEGATIVE (Negative); URINE SPECIFIC GRAVITY <= 1.005 (1.005-1.035); URINE UROBILINOGEN 0.2 E.U./dl (0.2-1.0)
[2021-06-06 19:06] LABS: BASOPHILS 1.1 % (0.0-2.0); EOSINOPHILS 2.3 % (0.0-3.0); HEMATOCRIT 39.8 % (37.0-47.0); HEMOGLOBIN 13.5 gm/dL (12.0-15.0); MCH 31.8 pg (26.0-34.0); MCHC 33.8 g/dL (28.0-37.0); MONOCYTES 8.8 % (1.0-8.0); PLATELET COUNT 335 thou/uL (150-400); POLYS 53.8 % (36.0-66.0); RBC 4.24 mil/uL (4.20-5.00); RDW 12.8 % (10.5-14.5); WBC 7.4 thou/uL (4.0-11.0)
[2021-06-06 19:16] LABS: CALCIUM 8.5 mg/dL (8.5-10.1); CREATININE 0.8 mg/dL (0.6-1.0)
[2021-06-06] MEDS ORDERED: DOXYCYCLINE 10100 MG PO (19:51)
[2021-06-06] MEDS ORDERED: LIDOCAINE 2%2 %/5 GM TOP (19:51)
[2021-06-06] MEDS ORDERED: PERCOCET 5-3251 EACH PO (19:51)
[2021-06-06] MEDS ORDERED: DIFLUCAN150 MG PO (19:54)
[2021-06-06 20:45] VITALS: BP 132/65
== END 2021-06-06 21:01 | disposition home or self-care (01) ==
LOC: ER 17:24
PROVIDERS: Emergency Medicine
DX: N34.2 Other urethritis (principal); R10.2 Pelvic and perineal pain; F32.9 Major depressive disorder, single episode, unspecified; F41.9 Anxiety disorder, unspecified; F17.210 Nicotine dependence, cigarettes, uncomplicated; Z87.442 Personal history of urinary calculi; Z90.89 Acquired absence of other organs; Z90.49 Acquired absence of other specified parts of digestive tract; Z90.721 Acquired absence of ovaries, unilateral; Z79.899 Other long term (current) drug therapy; Z79.891 Long term (current) use of opiate analgesic; Z88.8 Allergy status to other drugs, medicaments and biological substances; Z88.6 Allergy status to analgesic agent

== ENCOUNTER 2021-06-10 18:58 | Emergency (ER) | payer OTHER ==
[~2021-06-10] VITALS: Ht 167.6 cm; Wt 9.1 kg
[~2021-06-10 18:58] MED LIST changes: +DIFLUCAN150 MG PO; +LIDOCAINE 2%2 %/5 GM TOP
[2021-06-10 19:58] LABS: URINE BILIRUBIN NEGATIVE (Negative); URINE BLOOD NEGATIVE (Negative); URINE CLARITY SL CLOUDY; URINE COLOR YELLOW; URINE GLUCOSE-RANDOM* NEGATIVE (Negative); URINE KETONES NEGATIVE (Negative); URINE LEUKOCYTES-REFLEX NEGATIVE (Negative); URINE NITRITE-REFLEX NEGATIVE (Negative); URINE PROTEIN (DIPSTICK) NEGATIVE (Negative); URINE UROBILINOGEN 0.2 E.U./dl (0.2-1.0)
[2021-06-10 22:54] LABS: ABSOLUTE NEUTROPHILS 5.1 thou/uL (1.4-8.2); BASOPHILS 0.7 % (0.0-2.0); EOSINOPHILS 1.1 % (0.0-3.0); HEMATOCRIT 46.5 % (37.0-47.0); HEMOGLOBIN 15.3 gm/dL (12.0-15.0); MCH 30.8 pg (26.0-34.0); MCHC 32.9 g/dL (28.0-37.0); MCV 93.6 fL (80.0-100.0); MONOCYTES 7.2 % (1.0-8.0); PLATELET COUNT 333 thou/uL (150-400); RBC 4.96 mil/uL (4.20-5.00); RDW 13.3 % (10.5-14.5); WBC 8.4 thou/uL (4.0-11.0)
[2021-06-10 22:57] LABS: CALCIUM 9.1 mg/dL (8.5-10.1); CREATININE 0.7 mg/dL (0.6-1.0)
[2021-06-10 23:04] LABS: ALBUMIN 4.3 g/dL (3.4-5.0); TOTAL BILIRUBIN 0.7 mg/dL (0.2-1.0); TOTAL PROTEIN 8.4 g/dL (6.4-8.2)
[2021-06-10 23:05] LABS: POTASSIUM 5.9 mmol/L (3.5-5.1)
[2021-06-11] VITALS: BP 123/90
== END 2021-06-11 00:10 | disposition home or self-care (01) ==
LOC: ER 18:58
PROVIDERS: Emergency Medicine
DX: N76.0 Acute vaginitis (principal); B95.8 Unspecified staphylococcus as the cause of diseases classified elsewhere; R33.9 Retention of urine, unspecified; R10.30 Lower abdominal pain, unspecified; F41.9 Anxiety disorder, unspecified; F32.9 Major depressive disorder, single episode, unspecified; F17.210 Nicotine dependence, cigarettes, uncomplicated; Z90.49 Acquired absence of other specified parts of digestive tract; Z87.442 Personal history of urinary calculi; Z90.89 Acquired absence of other organs; Z90.711 Acquired absence of uterus with remaining cervical stump; Z79.891 Long term (current) use of opiate analgesic; Z79.899 Other long term (current) drug therapy; Z88.8 Allergy status to other drugs, medicaments and biological substances; Z88.6 Allergy status to analgesic agent

== ENCOUNTER 2021-07-11 11:50 | Emergency (ER) | payer OTHER ==
[~2021-07-11] VITALS: Ht 167.6 cm; Wt 90.7 kg
[2021-07-11 15:21] LABS: URINE BILIRUBIN NEGATIVE (Negative); URINE BLOOD NEGATIVE (Negative); URINE CLARITY SL CLOUDY; URINE COLOR YELLOW; URINE GLUCOSE-RANDOM* NEGATIVE (Negative); URINE KETONES NEGATIVE (Negative); URINE LEUKOCYTES-REFLEX TRACE (Negative); URINE NITRITE-REFLEX NEGATIVE (Negative); URINE PROTEIN (DIPSTICK) NEGATIVE (Negative); URINE UROBILINOGEN 0.2 E.U./dl (0.2-1.0)
[2021-07-11 16:10] LABS: ABSOLUTE NEUTROPHILS 4.5 thou/uL (1.4-8.2); BASOPHILS 0.8 % (0.0-2.0); EOSINOPHILS 1.4 % (0.0-3.0); HEMATOCRIT 41.8 % (37.0-47.0); LYMPHOCYTES 24.4 % (24.0-44.0); MCH 31.2 pg (26.0-34.0); MCHC 33.4 g/dL (28.0-37.0); MCV 93.3 fL (80.0-100.0); MONOCYTES 6.4 % (1.0-8.0); PLATELET COUNT 286 thou/uL (150-400); RBC 4.48 mil/uL (4.20-5.00); WBC 6.8 thou/uL (4.0-11.0)
[2021-07-11 16:28] LABS: ALBUMIN 3.7 g/dL (3.4-5.0); CALCIUM 8.8 mg/dL (8.5-10.1); CREATININE 0.8 mg/dL (0.6-1.0); TOTAL BILIRUBIN 0.5 mg/dL (0.2-1.0); TOTAL PROTEIN 7.4 g/dL (6.4-8.2)
[2021-07-11 16:29] LABS: POTASSIUM 4.7 mmol/L (3.5-5.1)
[2021-07-11] MEDS ORDERED: METRONIDAZOLE500 M4 PO (17:43)
[2021-07-11 18:23] VITALS: BP 110/83
--- NOTE | 2021-07-12 11:55 | EKG ---
[place] [address] [facility] [place] [address] ELECTROCARDIOGRAM REPORT Name: BING SR [id number] Admission: 07/11/21 Attend Phys: Discharge: 07/11/21 Date of : 78 Report #: [id number] [facility] ED Test Date: 2021-07-11 Test Time: 12:34:06 Pat Name: BING RS Department: Room: Gender: F Mobile Phlebotomist: FEROZ : 1980 Requested By: Charles Pinon Order Number: [id number] MD: Ez Flores Measurements Intervals [place] Rate: 100 P: 48 ME: 136 QRS: 7 QRSD: 86 T: 19 QT: 351 QTc: 453 Interpretive Statements Sinus tachycardia Otherwise no significant abnormality Compared to ECG 11/07/2020 23:19:13 No significant change was found Electronically Signed On 07-12-2021 11:55:19 NURSE INTERN by Ez Flores [email or web address] <ELECTRONICALLY SIGNED> By: Ez Flores MD, [facility] 07/12/21 1155 1234 1234 Ez Flores MD, FACC /EPI
== END 2021-07-11 18:23 | disposition home or self-care (01) ==
LOC: ER 11:50
PROVIDERS: Emergency Medicine; Nurse Practitioner
DX: N89.8 Other specified noninflammatory disorders of vagina (principal); Z20.822 Contact with and (suspected) exposure to COVID-19; R10.11 Right upper quadrant pain; M79.10 Myalgia, unspecified site; R50.9 Fever, unspecified; R05.9 Cough, unspecified; F32.9 Major depressive disorder, single episode, unspecified; F41.9 Anxiety disorder, unspecified; F17.210 Nicotine dependence, cigarettes, uncomplicated; Z90.49 Acquired absence of other specified parts of digestive tract; Z90.710 Acquired absence of both cervix and uterus; Z87.442 Personal history of urinary calculi; Z79.891 Long term (current) use of opiate analgesic; Z79.899 Other long term (current) drug therapy; Z88.6 Allergy status to analgesic agent; Z88.8 Allergy status to other drugs, medicaments and biological substances

== ENCOUNTER 2021-08-29 16:47 | Emergency (ER) | payer OTHER ==
[~2021-08-29] VITALS: Ht 167.6 cm; Wt 88.5 kg
[~2021-08-29 16:47] MED LIST changes: +METRONIDAZOLE500 M4 PO
[2021-08-29 17:50] LABS: HEMATOCRIT 36.4 % (37.0-47.0); HEMOGLOBIN 12.3 gm/dL (12.0-15.0); MCH 31.7 pg (26.0-34.0); MCHC 33.9 g/dL (28.0-37.0); MCV 93.4 fL (80.0-100.0); RBC 3.9 mil/uL (4.20-5.00); RDW 13.1 % (10.5-14.5)
[2021-08-29 18:08] LABS: CALCIUM 8.5 mg/dL (8.5-10.1); CREATININE 0.7 mg/dL (0.6-1.0); POTASSIUM 3.5 mmol/L (3.5-5.1)
[2021-08-29 18:14] LABS: ALBUMIN 3.6 g/dL (3.4-5.0); TOTAL BILIRUBIN 0.2 mg/dL (0.2-1.0); TOTAL PROTEIN 6.7 g/dL (6.4-8.2)
[2021-08-29 18:19] LABS: URINE BILIRUBIN NEGATIVE (Negative); URINE BLOOD 1+ (Negative); URINE CLARITY CLEAR; URINE COLOR YELLOW; URINE GLUCOSE-RANDOM* NEGATIVE (Negative); URINE KETONES NEGATIVE (Negative); URINE LEUKOCYTES-REFLEX NEGATIVE (Negative); URINE NITRITE-REFLEX NEGATIVE (Negative); URINE PROTEIN (DIPSTICK) 1+ (Negative); URINE SPECIFIC GRAVITY 1.025 (1.005-1.035); URINE UROBILINOGEN 0.2 E.U./dl (0.2-1.0)
[2021-08-29 18:27] LABS: SQUAMOUS >10 Many /LPF (0-3)
[2021-08-29 18:30] LABS: BACTERIA-REFLEX >30 Many /HPF (None Seen); CASTS None Seen /LPF (None Seen); CRYSTALS None Seen /LPF (None Seen)
[2021-08-29 18:31] LABS: URINE WBC-REFLEX 6-15 Few /HPF (0-5)
[2021-08-29] MEDS ORDERED: CEPHALEXIN500 MG PO (19:40)
[2021-08-29] MEDS ORDERED: CLEOCIN HCL300 MG PO (19:40)
[2021-08-29] MEDS ORDERED: PHENERGAN 25 MG25 M1 PO (19:40)
[2021-08-29 20:12] VITALS: BP 119/74
--- NOTE | 2021-08-30 11:31 | EKG ---
[place] [address] [facility] [place] [address] ELECTROCARDIOGRAM REPORT Name: BING SR Room #: [facility] [id number] Admission: 08/29/21 Attend Phys: Discharge: 08/29/21 Date of : 78 Report #: [id number] [facility] ED Test Date: 2021-08-29 Test Time: 16:59:16 Pat Name: BING SR Department: Room: Gender: F Cell Efficiency Supervisor: TIFFANIE : 1980 Requested By: Marivel Brennan Order Number: [id number] MD: Rashaun Sherwood Measurements Intervals [place] Rate: 86 P: 43 CA: 140 QRS: 19 QRSD: 96 T: 13 QT: 376 QTc: 450 Interpretive Statements Sinus rhythm Baseline wander in lead(s) II,III,aVL,aVF Compared to ECG 07/11/2021 12:34:06 Sinus tachycardia no longer present Electronically Signed On 08-30-2021 11:31:24 MASTER SCHEDULER by Rashaun Sherwood [email or web address] <ELECTRONICALLY SIGNED> By: Rashaun Sherwood MD 08/30/21 1131 1659 1659 MD GISSEL Parkinson
== END 2021-08-29 20:14 | disposition home or self-care (01) ==
LOC: ER 16:47
PROVIDERS: Nurse Practitioner Family
DX: N39.0 Urinary tract infection, site not specified (principal); R10.84 Generalized abdominal pain; N76.0 Acute vaginitis; F32.9 Major depressive disorder, single episode, unspecified; F17.210 Nicotine dependence, cigarettes, uncomplicated; F41.9 Anxiety disorder, unspecified; Z90.49 Acquired absence of other specified parts of digestive tract; Z90.89 Acquired absence of other organs; Z90.710 Acquired absence of both cervix and uterus; Z98.890 Other specified postprocedural states; Z79.899 Other long term (current) drug therapy; Z88.8 Allergy status to other drugs, medicaments and biological substances

== ENCOUNTER 2021-09-01 10:01 | Emergency (ER) | payer OTHER ==
[~2021-09-01] VITALS: Ht 167.6 cm; Wt 88.5 kg
[~2021-09-01 10:01] MED LIST changes: +CEPHALEXIN500 MG PO; +CLEOCIN HCL300 MG PO
[2021-09-01 10:32] LABS: URINE BILIRUBIN NEGATIVE (Negative); URINE BLOOD NEGATIVE (Negative); URINE CLARITY CLEAR; URINE COLOR YELLOW; URINE GLUCOSE-RANDOM* NEGATIVE (Negative); URINE KETONES NEGATIVE (Negative); URINE LEUKOCYTES-REFLEX NEGATIVE (Negative); URINE NITRITE-REFLEX NEGATIVE (Negative); URINE PROTEIN (DIPSTICK) NEGATIVE (Negative); URINE SPECIFIC GRAVITY 1.025 (1.005-1.035); URINE UROBILINOGEN 0.2 E.U./dl (0.2-1.0)
[2021-09-01 11:13] LABS: ABSOLUTE NEUTROPHILS 2.5 thou/uL (1.4-8.2); BASOPHILS 0.9 % (0.0-2.0); EOSINOPHILS 2.6 % (0.0-3.0); HEMOGLOBIN 13.1 gm/dL (12.0-15.0); LYMPHOCYTES 28.9 % (24.0-44.0); MCH 31.4 pg (26.0-34.0); MCHC 33.6 g/dL (28.0-37.0); MCV 93.4 fL (80.0-100.0); MONOCYTES 8.5 % (1.0-8.0); PLATELET COUNT 252 thou/uL (150-400); POLYS 59.1 % (36.0-66.0); RBC 4.18 mil/uL (4.20-5.00); RDW 12.9 % (10.5-14.5); WBC 4.3 thou/uL (4.0-11.0)
[2021-09-01 11:16] LABS: CALCIUM 8.8 mg/dL (8.5-10.1); CREATININE 0.9 mg/dL (0.6-1.0); POTASSIUM 3.6 mmol/L (3.5-5.1)
[2021-09-01] MEDS ORDERED: NAPROSYN500 MG PO (12:30)
[2021-09-01 12:38] VITALS: BP 119/77
== END 2021-09-01 12:48 | disposition home or self-care (01) ==
LOC: ER 10:01
PROVIDERS: Emergency Medicine
DX: N83.201 Unspecified ovarian cyst, right side (principal); F41.9 Anxiety disorder, unspecified; F17.210 Nicotine dependence, cigarettes, uncomplicated; F32.9 Major depressive disorder, single episode, unspecified; Z90.710 Acquired absence of both cervix and uterus; Z90.49 Acquired absence of other specified parts of digestive tract; Z79.899 Other long term (current) drug therapy; Z88.8 Allergy status to other drugs, medicaments and biological substances; Z90.89 Acquired absence of other organs